=== PATIENT | male | born 1970 | race Caucasian/White ===

== ENCOUNTER 2021-09-06 17:38 | Inpatient (IN) | payer MEDICAID, SELFPAY ==
[2021-09-06 17:42] VITALS: BP 143/88; PULSE 80; RESP 18; TEMP 36.7; O2SAT 99; BMI 27.1
[2021-09-06 19:21] LABS: Hematocrit 47.3 % (42.0-52.0); Hemoglobin 16.7 g/dl (14.0-18.0); Mean Corpuscular HGB Conc 35.3 g/dl (31.0-36.0); Mean Corpuscular Hemoglobin 31.5 pg (27.0-33.0); Mean Corpuscular Volume 89.2 fL (80.0-98.0); Mean Platelet Volume 9.2 fL (9.4-12.4); Platelet Count 258 X10*3/uL (160-400); Red Cell Distribution Width 13.6 % (11.0-16.0); White Blood Count 8.4 X10*3/uL (4.8-10.8)
[2021-09-06 19:34] LABS: Ethanol < 10 mg/dL
[2021-09-06 19:38] LABS: Alanine Aminotransferase 29 U/L (0-40); Albumin Level 4.3 g/dL (3.5-5.0); Alkaline Phosphatase 110 U/L (39-117); Anion Gap 16 (12-20); Aspartate Amino Transferase 39 U/L (5-37); Bilirubin Total 1.8 mg/dL (0.0-1.0); Blood Urea Nitrogen 9 mg/dL (9-16); Calcium 9.2 mg/dL (8.4-10.2); Carbon Dioxide 23 mmol/L (22-29); Chloride 99 mmol/L (96-108); Creatinine Clr Calc Pharmacy 95.3; Estimated Glomerular Filt Rate > 60; Glucose Random 178 mg/dL (60-115); Magnesium 1.4 mg/dL (1.6-2.6); Potassium 4.2 mmol/L (3.3-5.1); Sodium 134 mmol/L (135-145)
[2021-09-06 20:53] VITALS: BP 141/90; PULSE 82; RESP 18; TEMP 36.6; O2SAT 95
--- NOTE | 2021-09-06 21:17 | ED.ALCOHOL ---
HPI - Alcohol General Chief Complaint: ETOH/Substance Use Stated Complaint: sweating weakness Time Seen by Provider: 09/06/21 21:14 Source: patient and family (Mother) Mode of arrival: ambulatory Limitations: no limitations History of Present Illness HPI narrative: 50-year-old male history of alcohol abuse, brought in by his mother concerning of withdrawal alcohol symptoms. Patient has been vomiting, tremors in 4 extremities, and jittery. Last drink was last night about 24 hours ago did not drink a whole day today because he promised his mother not to drink. Related Data Home Medications Medication Instructions Recorded Confirmed albuterol sulfate 90 mcg/actuation 2 puff PO Q4-6H PRN 09/06/21 09/06/21 aerosol inhaler (ProAir HFA) ascorbic acid (vitamin C) 500 mg 1 tab PO BID 09/06/21 09/06/21 tablet citalopram 20 mg tablet 1 tab PO DAILY 09/06/21 09/06/21 ferrous sulfate 325 mg (65 mg 1 tab PO BID 09/06/21 09/06/21 iron) tablet naltrexone 50 mg tablet 1 tab PO DAILY 09/06/21 09/06/21 trazodone 100 mg tablet 2 tab PO BEDTIME 09/06/21 09/06/21 Allergies Allergy/AdvReac Type Severity Reaction Status Date / Time aripiprazole [From ABILIFY] Allergy Unknown HTN Unverified 04/09/20 16:04 cefaclor [From CECLOR] Allergy Unknown HIVES, rash Unverified 04/09/20 16:04 Cephalosporins Allergy Unknown RASH Unverified 04/09/20 16:04 Review of Systems Review of Systems: All other systems are reviewed and are negative Constitutional: Reports as per HPI and Reports no additional constitutional complaints Eyes: Reports as per HPI and Reports no additional eye complaints Reports system reviewed and no additional complaints, except as documented Cardiovascular: Reports as per HPI and Reports no additional cardiovascular complaints Respiratory: Reports as per HPI and Reports no additional respiratory complaints Gastrointestinal: Reports as per HPI and Reports no additional gastrointestinal complaints Genitourinary: Reports no additional female genitourinary complaints Musculoskeletal: Reports no additional musculoskeletal complaints Skin/Breast: Reports system reviewed and no additional complaints, except as docu Psychiatric: Reports no additional psychiatric complaints Endocrine: Reports no additional endocrine complaints Hematologic/Lymphatic: Reports no additional hematologic/lymphatic complaints Allergic/Immunologic: Reports no additional allergic/immunologic complaints Reports system reviewed and no additional complaints, except as documented and Reports Abnormal speech present [facility] Social History Social History Advance Directives: No Advance Directives Information Provided: Yes Physical Exam ED Vital Signs: Vital Signs - 24 hr 09/06/21 17:42 09/06/21 20:53 Temperature 98.0 F 97.9 F Pulse Rate 80 82 Respiratory Rate 18 18 Blood Pressure 143/88 H 141/90 H Pulse Oximetry 99 95 BMI result Body Mass Index 27.1 vital signs have been reviewed as appeared to be correct. Blood pressure normal. Heart rate normal. Respiration rate normal. Temperature normal. Oxygen saturation normal. Appearance: Alert. Oriented X3. appear very anxious with tremors. Head: Normal external exam. Normocephalic. Atraumatic. No Lovell signs noted. No raccoon eyes noted , with tongue fasciculation Eyes: PERRLA. EOMI. Conjunctiva and sclera normal. Eyelids normal. ENT: TM's Normal. Pharynx normal. Uvula midline. Moist mucous membranes. No trismus noted. No drooling noted. No muffled voice noted. Neck: Normal inspection. Neck supple. FROM. No adenopathy. Thyroid Normal. No meningeal signs. No neck mass noted. CVS: Normal heart rate and rhythm. Heart sound normal. No murmurs noted. Pulses normal throughout. Respiratory: No respiratory distress. Painless inspiration. Breath sounds normal. No wheezes/rales/rhonchi noted. Chest nontender. No accessory muscle usage noted or decreased air movement noted. Abdomen: Soft and nontender. Bowel sounds normal in all 4 quadrants. No distention noted. No organomegaly noted. No visible injury noted. Back: No CVA tenderness. Full range of motion noted. Skin: Skin warm and dry. Normal skin color. Normal skin turgor. No rashes/lesions/lacerations noted. Extremities: No lower extremity edema. Extremities exhibit normal range of motion. Extremities nontender. Neuro: Oriented X 3. Cranial nerve exam: II-XII are grossly intact No motor deficit. No sensory deficit. Reflexes normal. Course Course Course Narrative: assessment and plan. 50 years old male with history of alcoholism now with uncontrolled withdrawal symptoms, patient revealing severe anxiety and tremors, will start patient on phenobarb. 2. Patient with high hypomagnesemia will give IV magnesium replacement. MDM - Alcohol Lab Data Attestation: I reviewed the patient's lab results. Result diagrams: 09/06/21 19:07 09/06/21 19:07 Labs: Lab Results 09/06/21 09/06/21 09/06/21 Range/Units 19:07 19:07 19:07 WBC 8.4 (4.8-10.8) X10*3/uL RBC 5.30 (4.60-5.80) X10*6/uL Hgb 16.7 (14.0-18.0) g/dl Hct 47.3 (42.0-52.0) % MCV 89.2 (80.0-98.0) fL MCH 31.5 (27.0-33.0) pg MCHC 35.3 (31.0-36.0) g/dl RDW 13.6 (11.0-16.0) % Plt Count 258 (160-400) X10*3/uL MPV 9.2 L (9.4-12.4) fL Absolute Nucleated RBC 0.000 (0.0-0.012) X10*3/uL Nucleated RBC % (auto) 0.0 (0.0-0.2) /100WBC Sodium 134 L (135-145) mmol/L Potassium 4.2 (3.3-5.1) mmol/L Chloride 99 (96-108) mmol/L Carbon Dioxide 23 (22-29) mmol/L Anion Gap 16 (12-20) BUN 9 (9-16) mg/dL Creatinine 1.04 (0.5-1.4) mg/dL Estim Creat Clear Calc 95.3 Estimated GFR > 60 Random Glucose 178 H (60-115) mg/dL Calcium 9.2 (8.4-10.2) mg/dL Magnesium 1.4 L* (1.6-2.6) mg/dL Total Bilirubin 1.8 H (0.0-1.0) mg/dL AST 39 H (5-37) U/L ALT 29 (0-40) U/L Alkaline Phosphatase 110 (39-117) U/L Total Protein 7.0 (6.5-8.0) g/dL Albumin 4.3 (3.5-5.0) g/dL Ethyl Alcohol < 10 mg/dL Discharge Plan Discharge Clinical Impression: Alcohol withdrawal syndrome, Hypomagnesemia Patient Disposition: Admitted As Inpatient
--- NOTE | 2021-09-06 21:49 | PM.IMHP ---
History of Present Illness Date of Service: 09/06/21 Chief Complaint: Alcohol withdrawal 50-year-old male with a past medical history anxiety, depression, alcohol abuse presented to the hospital with a chief complaint of alcohol withdrawal. Patient reports that he has been drinking alcohol daily. Drinks about few cans of beer and shots. Last drink was 24 hours ago. Reports he has been having tremulousness, dry heaving, shaking in the legs. Denies any vomiting or diarrhea. Denies any chest pain or palpitations. Denies any fever chills cough. Denies any urinary symptoms. Review of all other systems is negative except mentioned above ER course: Per ER team patient noted to be tremulous and shaky, mildly tachycardic, noted to be in alcohol withdrawal. Lab showed mild hypomagnesemia-repleted; patient is on phenobarb protocol. Admitted to the hospital for further management. [facility] Pertinent family history: Reviewed Social History Advance Directives: No Advance Directives Information Provided: Yes Meds Allergies Allergy/AdvReac Type Severity Reaction Status Date / Time aripiprazole [From ABILIFY] Allergy Unknown HTN Unverified 04/09/20 16:04 cefaclor [From CECLOR] Allergy Unknown HIVES, rash Unverified 04/09/20 16:04 Cephalosporins Allergy Unknown RASH Unverified 04/09/20 16:04 Active Medications: Current Medications Acetaminophen (Acetaminophen 325 Mg Tablet) 650 mg PO Q6H PRN PRN Reason: Pain, Mild (Pain Scale 1-3) Enoxaparin Sodium (Enoxaparin Sodium 40 Mg/0.4 Ml Syringe) 40 mg SUBCUT Q24H [facility] Famotidine (Famotidine 20 Mg Tablet) 20 mg PO BID [facility]U Folic Acid (Folic Acid 1 Mg Tablet) 1 mg PO DAILY [facility] Stop: 09/10/21 08:59 Hydroxyzine HCl (Hydroxyzine Hcl 25 Mg Tablet) 25 mg PO Q6H PRN PRN Reason: Anxiety Magnesium Sulfate (Magnesium Sulfate/H2o) 2 gm in 50 mls @ 25 mls/hr IV ONCE ONE Stop: 09/06/21 23:13 Sodium Chloride (Ns) 1,000 mls @ 999 mls/hr IV .Q1H1M ONE Stop: 09/06/21 22:22 Dextrose/Sodium Chloride (D51/2ns) 1,000 mls @ 100 mls/hr IVCONT .Q10H [facility] Medication (No Benzodiazepines) 1 each MISCELLANE DAILY [facility] Melatonin (Melatonin 3 Mg Tablet) 6 mg PO BEDTIME PRN PRN Reason: Insomnia Multivitamins/Vitamin C (Multivitamin Tablet) 1 tab PO DAILY [facility] Stop: 09/10/21 08:59 Phenobarbital (Phenobarbital 30 Mg Tablet) 60 mg PO BID SHU; Protocol Stop: 09/08/21 21:01 Phenobarbital (Phenobarbital 30 Mg Tablet) 30 mg PO DAILY SHU; Protocol Stop: 09/12/21 09:01 Phenobarbital (Phenobarbital 30 Mg Tablet) 30 mg PO BID SHU; Protocol Stop: 09/10/21 21:01 Phenobarbital Sodium (Phenobarbital Sodium 130 Mg/Ml Vial) 232.7 mg IM Q3H [facility]U; Protocol Stop: 09/07/21 04:01 Senna (Sennosides 8.6 Mg Tablet) 17.2 mg PO BEDTIME PRN PRN Reason: Constipation Sodium Chloride (0.9 % Sodium Chloride Flush 3 Ml Syringe) 3 ml IVFLUSH QSHIFT [facility] Thiamine HCl (Thiamine Hcl 100 Mg Tablet) 100 mg PO DAILY [facility] Stop: 09/10/21 08:59 Home Medications Medication Instructions Recorded Confirmed Last Taken Type albuterol sulfate 90 mcg/actuation 2 puff PO Q4-6H PRN 09/06/21 09/06/21 Unknown History aerosol inhaler (ProAir HFA) ascorbic acid (vitamin C) 500 mg 1 tab PO BID 09/06/21 09/06/21 Unknown History tablet citalopram 20 mg tablet 1 tab PO DAILY 09/06/21 09/06/21 Unknown History ferrous sulfate 325 mg (65 mg 1 tab PO BID 09/06/21 09/06/21 Unknown History iron) tablet naltrexone 50 mg tablet 1 tab PO DAILY 09/06/21 09/06/21 Unknown History trazodone 100 mg tablet 2 tab PO BEDTIME 09/06/21 09/06/21 Unknown History Physical Exam Vital Signs and Narrative: Vital Signs: Last Vital Signs Temp 97.9 F 09/06/21 20:53 Pulse 82 09/06/21 20:53 Resp 18 09/06/21 20:53 BP 141/90 H 09/06/21 20:53 Pulse Ox 95 09/06/21 20:53 BMI result Body Mass Index 27.1 Gen: Appears be in no acute distress HEENT: NCAT, dry mucosa. Pulmonary: Vesicular breath sounds, fair air entry CVS: Normal S1-S2 Abdomen: BS+, Soft, Nontender Extremities: Warm well perfused Neuro: Alert and awake. Results Labs CBC and Chem 7: 09/06/21 19:07 09/06/21 19:07 Labs: Laboratory Results - last 24 hr 09/06/21 09/06/21 09/06/21 19:07 19:07 19:07 MCV 89.2 MCH 31.5 MCHC 35.3 RDW 13.6 Plt Count 258 MPV 9.2 L Absolute Nucleated RBC 0.000 Nucleated RBC % (auto) 0.0 Anion Gap 16 Estim Creat Clear Calc 95.3 Estimated GFR > 60 Random Glucose 178 H Calcium 9.2 Magnesium 1.4 L* Total Bilirubin 1.8 H AST 39 H ALT 29 Alkaline Phosphatase 110 Total Protein 7.0 Albumin 4.3 Ethyl Alcohol < 10 Assessment and Plan Plan 50-year-old male with a past medical history anxiety, depression, alcohol abuse presented to the hospital with a chief complaint of alcohol withdrawal. Alcohol withdrawal: Patient on phenobarb protocol. Continue thiamine folate and multivitamins Seizure and aspiration precautions Hypomagnesemia: Repleted History of depression: Continue home citalopram. DVT prophylaxis: Lovenox Code status: Full code Quality Stroke Does the patient have a stroke diagnosis?: No VTE Prior VTE?: No VTE Risk Level:: Medical - moderate - high VTE Device Contraindication: Treatment Not Indicated VTE Drug Contraindication: N/A - Med Ordered
[2021-09-06] MEDS: Magnesium Sulfate/H2O 2 GM/50 ML PIGGYBACK IV (21:53)
[2021-09-06] MEDS: 0.9 % Sodium Chloride 1,000 ML 999 ML IV (21:54)
[2021-09-06] MEDS: PHENobarbitaL sodium 130 MG/ML VIAL 310.7 MG IM (21:54)
--- NOTE | 2021-09-06 22:32 | PHA.MEDREC ---
Pharmacy Consult ? Medication Reconciliation Pharmacy has completed the medication reconciliation. SPOKE WITH PT
[2021-09-07] VITALS (10 sets, daily range): BP systolic 124–164; BP diastolic 61–104; PULSE 60–80; RESP 12–20; TEMP 35.8–37.2; O2SAT 93–97
[2021-09-07] MEDS: Dextrose 5 % and 0.45 % NaCl 1,000 ML 100 ML IVCONT ×3 (00:38→23:50)
[2021-09-07] MEDS: PHENobarbitaL sodium 130 MG/ML VIAL 232.7 MG IM ×2 (02:23→04:39)
[2021-09-07 04:45] LABS: COVID-19 Test Negative (Negative)
--- NOTE | 2021-09-07 06:53 | PC.NURSE ---
Patient slept through the night. CIWA score is now down to 0. Patient is currently on phenobarbital protocol. Currently has no tremors.
--- NOTE | 2021-09-07 06:55 | PC.NURSE ---
Patient's mothers numbers are cell [phone], home phone [phone]. The mothers name in Mickie
--- NOTE | 2021-09-07 07:36 | PC.NURSE ---
rn to rn report given to pedro robles aware of plan of care for admission and transfer to [facility].
[2021-09-07 07:55] LABS: MANUAL DIFF FLAG NO
[2021-09-07 07:57] LABS: Basophils Percent Auto 0.3 % (0-2); Eosinophils Percent Auto 0.2 % (0-4); Hematocrit 46.5 % (42.0-52.0); Hemoglobin 16.3 g/dl (14.0-18.0); Imm Gran Abs Auto 0.04 X10*3/uL (0.00-0.03); Imm Gran Pct Auto 0.4 % (0.0-0.4); Lymphocytes Absolute Auto 1.8 X10*3/uL (1.2-4.9); Lymphocytes Percent Auto 19.6 % (20-40); Mean Corpuscular HGB Conc 35.1 g/dl (31.0-36.0); Mean Corpuscular Hemoglobin 31.9 pg (27.0-33.0); Mean Platelet Volume 9.4 fL (9.4-12.4); Monocytes Absolute Auto 0.7 X10*3/uL (0.1-1.2); Monocytes Percent Auto 8.2 % (2-11); Neutrophils Absolute Auto 6.4 x10*3/uL (2.0-8.3); Neutrophils Percent Auto 71.3 % (45-73); Platelet Count 218 X10*3/uL (160-400); Red Blood Count 5.11 X10*6/uL (4.60-5.80); Red Cell Distribution Width 13.2 % (11.0-16.0)
[2021-09-07 08:11] LABS: Magnesium 2.1 mg/dL (1.6-2.6)
[2021-09-07 08:13] LABS: Anion Gap 15 (12-20); Blood Urea Nitrogen 7 mg/dL (9-16); Calcium 8.6 mg/dL (8.4-10.2); Carbon Dioxide 24 mmol/L (22-29); Chloride 101 mmol/L (96-108); Creatinine Clr Calc Pharmacy 101.1; Estimated Glomerular Filt Rate > 60; Glucose Random 134 mg/dL (60-115); Potassium 4.3 mmol/L (3.3-5.1); Sodium 136 mmol/L (135-145)
--- NOTE | 2021-09-07 08:36 | MHC.CM.PN ---
CM met with Patient at bedside. Patient lives in a house with his Parents and he is functionally independent and working at [employer]. Home no services vs Care Tram Interventions r/t ETOH is the goal and CM has initiated and will follow for dc planning. Patient lives in a house with his Parents and he has received Moderna Covid vax X3. PCP is Dr. Elma Fishman.
[2021-09-07] MEDS: Ascorbic Acid 500 MG TABLET PO ×2 (09:39→21:55)
[2021-09-07] MEDS: Thiamine HCL 100 MG TABLET PO (09:39)
[2021-09-07] MEDS: Escitalopram Oxalate 10 MG TABLET PO (09:39)
[2021-09-07] MEDS: Famotidine 20 MG TABLET PO ×2 (09:39→21:55)
[2021-09-07] MEDS: Multivitamin TABLET 1 TAB PO (09:39)
[2021-09-07] MEDS: Folic Acid 1 MG TABLET PO (09:39)
[2021-09-07] MEDS: PHENobarbitaL sodium 130 MG/ML VIAL IM (09:39)
[2021-09-07] MEDS: PHENobarbitaL 30 MG TABLET 60 MG PO ×2 (09:40→21:56)
--- NOTE | 2021-09-07 11:16 | P.PNIM_ITS ---
Subjective Subjective Date of Service: 09/07/21 Interval History: the patient was seen and evaluated this morning Laying in bed, feels anxious and having tremors Denies any fever, chills or chest pain No reported other overnight events. Systemic review: No fever, chills but reports increased anxiety and tremors No chest pain, palpitation No shortness of breath or coughing No abdominal pain, nausea or vomiting No urinary symptoms No any rash or wounds Physical Exam Vital Signs: Vital Signs: Last Vital Signs Temp 98.6 F 09/07/21 11:10 Pulse 76 09/07/21 11:10 Resp 16 09/07/21 11:10 BP 124/76 09/07/21 11:10 Pulse Ox 95 09/07/21 11:10 BMI result Body Mass Index 27.1 Const: Other: Constitutional : Alert, oriented, mildly anxious Neck : Normal inspection, Supple Cardiovascular : RRR, S1 S2, no lower extremity edema Respiratory : Good bilateral air entry, no crackles, wheezes or rhonchi Gastrointestinal: soft, lax, Normal bowel sounds, Non tender Skin : Warm, Dry Neurological : Alert & oriented x3, No focal deficit, lower extremities tremors Objective Data Active Medications Acetaminophen (Acetaminophen 325 Mg Tablet) 650 mg PO Q6H PRN PRN Reason: Pain, Mild (Pain Scale 1-3) Albuterol Sulfate (Albuterol Sulfate 90 Mcg 8 Gm Inhaler) 2 puff INHALE Q4H PRN PRN Reason: Shortness Of Breath Ascorbic Acid (Ascorbic Acid 500 Mg Tablet) 500 mg PO BID [facility] Last Admin: 09/07/21 09:39 Dose: 500 mg Documented by: PEMA Enoxaparin Sodium (Enoxaparin Sodium 40 Mg/0.4 Ml Syringe) 40 mg SUBCUT Q24H [facility] Last Admin: 09/07/21 09:48 Dose: Not Given Documented by: PEMA Non-Admin Reason: Patient Refused Escitalopram Oxalate (Escitalopram Oxalate 10 Mg Tablet) 10 mg PO DAILY [facility] Last Admin: 09/07/21 09:39 Dose: 10 mg Documented by: PEMA Famotidine (Famotidine 20 Mg Tablet) 20 mg PO BID [facility] Last Admin: 09/07/21 09:39 Dose: 20 mg Documented by: PEMA Folic Acid (Folic Acid 1 Mg Tablet) 1 mg PO DAILY [facility] Stop: 09/10/21 08:59 Last Admin: 09/07/21 09:39 Dose: 1 mg Documented by: PEMA Hydroxyzine HCl (Hydroxyzine Hcl 25 Mg Tablet) 25 mg PO Q6H PRN PRN Reason: Anxiety Dextrose/Sodium Chloride (D51/2ns) 1,000 mls @ 100 mls/hr IVCONT .Q10H [facility] Last Admin: 09/07/21 09:30 Dose: 100 mls/hr Documented by: PEMA Medication (No Benzodiazepines) 1 each MISCELLANE DAILY [facility] Melatonin (Melatonin 3 Mg Tablet) 6 mg PO BEDTIME PRN PRN Reason: Insomnia Multivitamins/Vitamin C (Multivitamin Tablet) 1 tab PO DAILY [facility] Stop: 09/10/21 08:59 Last Admin: 09/07/21 09:39 Dose: 1 tab Documented by: PEMA Phenobarbital (Phenobarbital 30 Mg Tablet) 60 mg PO BID [facility]; Protocol Stop: 09/08/21 21:01 Last Admin: 09/07/21 09:40 Dose: 60 mg Documented by: PEMA Phenobarbital (Phenobarbital 30 Mg Tablet) 30 mg PO DAILY [facility]; Protocol Stop: 09/12/21 09:01 Phenobarbital (Phenobarbital 30 Mg Tablet) 30 mg PO BID [facility]; Protocol Stop: 09/10/21 21:01 Senna (Sennosides 8.6 Mg Tablet) 17.2 mg PO BEDTIME PRN PRN Reason: Constipation Sodium Chloride (0.9 % Sodium Chloride Flush 3 Ml Syringe) 3 ml IVFLUSH QSHIFT [facility] Last Admin: 09/07/21 09:30 Dose: Not Given Documented by: PEMA Non-Admin Reason: IV Running Thiamine HCl (Thiamine Hcl 100 Mg Tablet) 100 mg PO DAILY [facility] Stop: 09/10/21 08:59 Last Admin: 09/07/21 09:39 Dose: 100 mg Documented by: PEMA Trazodone HCl (Trazodone Hcl 100 Mg Tablet) 200 mg PO BEDTIME [facility] Labs CBC & Chem 7: 09/07/21 07:24 09/07/21 07:24 Labs: Laboratory Results - last 24 hr 09/06/21 09/06/21 09/06/21 19:07 19:07 19:07 MCV 89.2 MCH 31.5 MCHC 35.3 RDW 13.6 Plt Count 258 MPV 9.2 L Immature Gran % (Auto) Neut % (Auto) Lymph % (Auto) Mora % (Auto) Eos % (Auto) Baso % (Auto) Lymph # (Auto) Mora # (Auto) Eos # (Auto) Baso # (Auto) Abs Immat Gran (auto) Absolute Neuts (auto) Absolute Nucleated RBC 0.000 Nucleated RBC % (auto) 0.0 Anion Gap 16 Estim Creat Clear Calc 95.3 Estimated GFR > 60 Random Glucose 178 H Calcium 9.2 Magnesium 1.4 L* Total Bilirubin 1.8 H AST 39 H ALT 29 Alkaline Phosphatase 110 Total Protein 7.0 Albumin 4.3 Ethyl Alcohol < 10 COVID-19 (JAZZY) COVID-[employer] 09/07/21 09/07/21 09/07/21 04:25 07:24 07:24 MCV 91.0 MCH 31.9 MCHC 35.1 RDW 13.2 Plt Count 218 MPV 9.4 Immature Gran % (Auto) 0.4 Neut % (Auto) 71.3 Lymph % (Auto) 19.6 L Mora % (Auto) 8.2 Eos % (Auto) 0.2 Baso % (Auto) 0.3 Lymph # (Auto) 1.8 Mora # (Auto) 0.7 Eos # (Auto) 0.0 Baso # (Auto) 0.0 Abs Immat Gran (auto) 0.04 H Absolute Neuts (auto) 6.4 Absolute Nucleated RBC 0.000 Nucleated RBC % (auto) 0.0 Anion Gap 15 Estim Creat Clear Calc 101.1 Estimated GFR > 60 Random Glucose 134 H Calcium 8.6 D Magnesium Total Bilirubin AST ALT Alkaline Phosphatase Total Protein Albumin Ethyl Alcohol COVID-19 (JAZZY) Negative COVID-19 [employer] Com See Note 09/07/21 07:24 MCV MCH MCHC RDW Plt Count MPV Immature Gran % (Auto) Neut % (Auto) Lymph % (Auto) Mora % (Auto) Eos % (Auto) Baso % (Auto) Lymph # (Auto) Mora # (Auto) Eos # (Auto) Baso # (Auto) Abs Immat Gran (auto) Absolute Neuts (auto) Absolute Nucleated RBC Nucleated RBC % (auto) Anion Gap Estim Creat Clear Calc Estimated GFR Random Glucose Calcium Magnesium 2.1 Total Bilirubin AST ALT Alkaline Phosphatase Total Protein Albumin Ethyl Alcohol COVID-19 (JAZZY) COVID-19 Clin Com Assessment and Plan (1) Alcohol withdrawal syndrome: Status: Acute (2) Hypomagnesemia: Status: Acute Plan 50-year-old male with a past medical history anxiety, depression, alcohol abuse presented to the hospital with a chief complaint of alcohol withdrawal.? Alcohol withdrawal Patient on phenobarb protocol.? Continue thiamine folate and multivitamins Seizure and aspiration precautions Hypomagnesemia Repleted, 2.1 History of depression Continue home citalopram.? DVT prophylaxis [email or web address] Quality Stroke Does the patient have a stroke diagnosis?: No VTE Prior VTE?: No VTE Risk Level:: Medical - moderate - high VTE Device Contraindication: Treatment Not Indicated VTE Drug Contraindication: N/A - Med Ordered
[2021-09-07] MEDS: traZODone HCL 100 MG TABLET 200 MG PO (21:55)
[2021-09-07 22:39] LABS: Glucose, Whole Blood 105 mg/dL (60-115)
--- NOTE | 2021-09-08 00:47 | PC.NURSE ---
At 2049 this RN was notified by VIBHA Raman that patient had a witnessed fall while walking to the bathroom. Pt had rang call calle, when the FLAME BRAZING MACHINE OPERATOR walked in the room the pt had already disconnected his own IV, which was then dripping on the floor. Pt stood up quickly stating he needed to have a BM urgently, stepping in the IV fluid and began walking quickly towards the bathroom. Just outside the bathroom pt slipped from wet socks and landed on his buttocks. Pt denies any pain, and no visible signs of injury at this time. Vital signs and POC taken, WNL. Pt educated on not touching IV. Pt made a high fall risk and educated on proper precautions. Nursing clerk supervisor Shante, and MD Herndon made aware. at bedside, no new orders.
[2021-09-08 03:34] VITALS: BP 126/83; PULSE 62; RESP 18; TEMP 35.9; O2SAT 97
[2021-09-08 06:32] LABS: Hematocrit 41.7 % (42.0-52.0); Hemoglobin 14.6 g/dl (14.0-18.0); Mean Corpuscular Hemoglobin 31.9 pg (27.0-33.0); Mean Platelet Volume 9.7 fL (9.4-12.4); Platelet Count 142 X10*3/uL (160-400); Red Blood Count 4.58 X10*6/uL (4.60-5.80); Red Cell Distribution Width 13.1 % (11.0-16.0); White Blood Count 4.3 X10*3/uL (4.8-10.8)
[2021-09-08 07:06] LABS: Blood Urea Nitrogen 6 mg/dL (9-16); Calcium 8.3 mg/dL (8.4-10.2); Creatinine Clr Calc Pharmacy 102.2; Estimated Glomerular Filt Rate > 60; Glucose Random 117 mg/dL (60-115)
[2021-09-08 07:22] LABS: Anion Gap 9 (12-20); Carbon Dioxide 28 mmol/L (22-29); Chloride 103 mmol/L (96-108); Potassium 3.3 mmol/L (3.3-5.1); Sodium 137 mmol/L (135-145)
[2021-09-08 07:28] VITALS: BP 102/62; PULSE 56; RESP 18; TEMP 35.8; O2SAT 96
[2021-09-08] MEDS: Folic Acid 1 MG TABLET PO (08:08)
[2021-09-08] MEDS: Famotidine 20 MG TABLET PO ×2 (08:08→21:10)
[2021-09-08] MEDS: PHENobarbitaL 30 MG TABLET 60 MG PO ×2 (08:08→21:10)
[2021-09-08] MEDS: Thiamine HCL 100 MG TABLET PO (08:08)
[2021-09-08] MEDS: Escitalopram Oxalate 10 MG TABLET PO (08:09)
[2021-09-08] MEDS: Ascorbic Acid 500 MG TABLET PO ×2 (08:09→21:10)
[2021-09-08] MEDS: Multivitamin TABLET 1 TAB PO (08:09)
[2021-09-08] MEDS: Enoxaparin Sodium 40 MG/0.4 ML SYRINGE SUBCUT (08:12)
[2021-09-08] MEDS: Dextrose 5 % and 0.45 % NaCl 1,000 ML 100 ML IVCONT ×2 (08:38→17:31)
[2021-09-08 11:12] VITALS: BP 127/78; PULSE 78; RESP 16; TEMP 35.9; O2SAT 97
--- NOTE | 2021-09-08 11:33 | P.PNIM_ITS ---
Subjective Subjective Date of Service: 09/08/21 Interval History: cc: jittery interval history: tired Cardiovascular Cardiovascular: Reports no additional cardiovascular complaints Respiratory Respiratory: Reports no additional respiratory complaints Physical Exam Vital Signs: Vital Signs: Last Vital Signs Temp 96.7 F L 09/08/21 11:12 Pulse 78 09/08/21 11:12 Resp 16 09/08/21 11:12 BP 127/78 09/08/21 11:12 Pulse Ox 97 09/08/21 11:12 BMI result Body Mass Index 27.1 General: lethargic, resting tremor Resp: CTA bilateral, no accessory muscles used CVS: S1,S2,RRR GI: soft, non tender, non distended Neuro: motor grossly intact Psych: appropriate affect, appropriate insight Objective Data Active Medications Acetaminophen (Acetaminophen 325 Mg Tablet) 650 mg PO Q6H PRN PRN Reason: Pain, Mild (Pain Scale 1-3) Albuterol Sulfate (Albuterol Sulfate 90 Mcg 8 Gm Inhaler) 2 puff INHALE Q4H PRN PRN Reason: Shortness Of Breath Ascorbic Acid (Ascorbic Acid 500 Mg Tablet) 500 mg PO BID [facility] Last Admin: 09/08/21 08:09 Dose: 500 mg Documented by: DAVID Enoxaparin Sodium (Enoxaparin Sodium 40 Mg/0.4 Ml Syringe) 40 mg SUBCUT Q24H [facility] Last Admin: 09/08/21 08:12 Dose: 40 mg Documented by: DAVID Escitalopram Oxalate (Escitalopram Oxalate 10 Mg Tablet) 10 mg PO DAILY [facility] Last Admin: 09/08/21 08:09 Dose: 10 mg Documented by: DAVID Famotidine (Famotidine 20 Mg Tablet) 20 mg PO BID [facility] Last Admin: 09/08/21 08:08 Dose: 20 mg Documented by: DAVID Folic Acid (Folic Acid 1 Mg Tablet) 1 mg PO DAILY [facility] Stop: 09/10/21 08:59 Last Admin: 09/08/21 08:08 Dose: 1 mg Documented by: DAVID Hydroxyzine HCl (Hydroxyzine Hcl 25 Mg Tablet) 25 mg PO Q6H PRN PRN Reason: Anxiety Dextrose/Sodium Chloride (D51/2ns) 1,000 mls @ 100 mls/hr IVCONT .Q10H [facility] Last Admin: 09/08/21 08:38 Dose: 100 mls/hr Documented by: DAVID Medication (No Benzodiazepines) 1 each MISCELLANE DAILY [facility] Melatonin (Melatonin 3 Mg Tablet) 6 mg PO BEDTIME PRN PRN Reason: Insomnia Multivitamins/Vitamin C (Multivitamin Tablet) 1 tab PO DAILY [facility] Stop: 09/10/21 08:59 Last Admin: 09/08/21 08:09 Dose: 1 tab Documented by: DAVID Phenobarbital (Phenobarbital 30 Mg Tablet) 60 mg PO BID [facility]; Protocol Stop: 09/08/21 21:01 Last Admin: 09/08/21 08:08 Dose: 60 mg Documented by: DAVID Phenobarbital (Phenobarbital 30 Mg Tablet) 30 mg PO DAILY [facility]; Protocol Stop: 09/12/21 09:01 Phenobarbital (Phenobarbital 30 Mg Tablet) 30 mg PO BID [facility]; Protocol Stop: 09/10/21 21:01 Senna (Sennosides 8.6 Mg Tablet) 17.2 mg PO BEDTIME PRN PRN Reason: Constipation Sodium Chloride (0.9 % Sodium Chloride Flush 3 Ml Syringe) 3 ml IVFLUSH QSHIFT [facility] Last Admin: 09/08/21 08:10 Dose: Not Given Documented by: DAVID Non-Admin Reason: IV Running Thiamine HCl (Thiamine Hcl 100 Mg Tablet) 100 mg PO DAILY [facility] Stop: 09/10/21 08:59 Last Admin: 09/08/21 08:08 Dose: 100 mg Documented by: DAVID Trazodone HCl (Trazodone Hcl 100 Mg Tablet) 200 mg PO BEDTIME [facility] Last Admin: 09/07/21 21:55 Dose: 200 mg Documented by: NICHOLAS Labs CBC & Chem 7: 09/08/21 05:59 09/08/21 05:59 Labs: Laboratory Results - last 24 hr 09/07/21 09/08/21 09/08/21 20:55 05:59 05:59 MCV 91.0 MCH 31.9 MCHC 35.0 RDW 13.1 Plt Count 142 L D MPV 9.7 Absolute Nucleated RBC 0.000 Nucleated RBC % (auto) 0.0 Anion Gap 9 L Estim Creat Clear Calc 102.2 Estimated GFR > 60 POC Glucose 105 Random Glucose 117 H Calcium 8.3 L Assessment and Plan (1) Alcohol withdrawal syndrome: Status: Acute (2) Hypomagnesemia: Status: Acute Plan 50-year-old male with a past medical history anxiety, depression, alcohol abuse presented to the hospital with a chief complaint of alcohol withdrawal.? Alcohol dependence with withdrawal continue phenobarb protocol.? Continue thiamine folate and multivitamins Seizure and aspiration precautions Hypomagnesemia Repleted, 2.1 History of depression Continue home citalopram.? DVT prophylaxis Lovenox Quality Stroke Does the patient have a stroke diagnosis?: No VTE Prior VTE?: No VTE Risk Level:: Medical - moderate - high VTE Device Contraindication: Treatment Not Indicated VTE Drug Contraindication: N/A - Med Ordered
--- NOTE | 2021-09-08 14:53 | MHC.CM.PN ---
Spoke with Pts Mother. Discharge planning was discussed. A Care team consult will be done to assist with dispo. CM will follow.
[2021-09-08 15:36] VITALS: BP 131/84; PULSE 89; RESP 18; TEMP 36.7; O2SAT 98
[2021-09-08] MEDS: Loperamide HCl 2 MG CAPSULE PO (17:31)
[2021-09-08] MEDS: Simethicone 80 MG TAB.CHEW PO (17:31)
[2021-09-08 19:11] VITALS: BP 122/78; PULSE 58; RESP 18; TEMP 37.1; O2SAT 98
[2021-09-08 23:40] VITALS: BP 140/79; PULSE 67; RESP 20; TEMP 37.2; O2SAT 98
[2021-09-09] MEDS: traZODone HCL 100 MG TABLET 200 MG PO (00:23)
[2021-09-09 04:00] VITALS: BP 128/60; PULSE 58; RESP 18; TEMP 37.1; O2SAT 98
[2021-09-09 06:56] LABS: Hematocrit 40.8 % (42.0-52.0); Hemoglobin 14.2 g/dl (14.0-18.0); Mean Corpuscular HGB Conc 34.8 g/dl (31.0-36.0); Mean Corpuscular Hemoglobin 31.6 pg (27.0-33.0); Mean Corpuscular Volume 90.9 fL (80.0-98.0); Platelet Count 141 X10*3/uL (160-400); Red Blood Count 4.49 X10*6/uL (4.60-5.80); Red Cell Distribution Width 13.1 % (11.0-16.0); White Blood Count 5.1 X10*3/uL (4.8-10.8)
[2021-09-09 07:12] LABS: Anion Gap 10 (12-20); Blood Urea Nitrogen 7 mg/dL (9-16); Calcium 8.4 mg/dL (8.4-10.2); Carbon Dioxide 26 mmol/L (22-29); Chloride 105 mmol/L (96-108); Creatinine Clr Calc Pharmacy 110.1; Estimated Glomerular Filt Rate > 60; Glucose Fasting 96 mg/dL (60-99); Potassium 3.4 mmol/L (3.3-5.1); Sodium 138 mmol/L (135-145)
[2021-09-09 07:29] VITALS: BP 117/74; PULSE 57; RESP 20; TEMP 36.8; O2SAT 96
[2021-09-09] MEDS: Enoxaparin Sodium 40 MG/0.4 ML SYRINGE SUBCUT (07:45)
[2021-09-09] MEDS: Escitalopram Oxalate 10 MG TABLET PO (07:46)
[2021-09-09] MEDS: Folic Acid 1 MG TABLET PO (07:46)
[2021-09-09] MEDS: Famotidine 20 MG TABLET PO (07:47)
[2021-09-09] MEDS: PHENobarbitaL 30 MG TABLET PO (07:47)
[2021-09-09] MEDS: 0.9 % Sodium Chloride Flush 3 ML SYRINGE IVFLUSH (07:47)
[2021-09-09] MEDS: Multivitamin TABLET 1 TAB PO (07:48)
[2021-09-09] MEDS: Thiamine HCL 100 MG TABLET PO (07:48)
[2021-09-09] MEDS: Ascorbic Acid 500 MG TABLET PO (07:48)
--- NOTE | 2021-09-09 09:25 | PM.DS ---
DS: Providers Provider Date of Service: 09/09/21 Date of admission: 09/06/21 21:46 Primary care physician: Elma Fishman MD Consults: 09/08/21 13:58 Consult to Care Team Routine Comment: Reason for consultation: etoh DS: Diagnosis Discharge Diagnosis (1) Alcohol withdrawal syndrome: Status: Acute (2) Hypomagnesemia: Status: Acute DS: Summary Hospital Course Hospital Course: patient was admitted for alcohol dependence with withdrawal and hypomagnesemia. he was given phenobarbital and magnesium supplement. magnesium returned to normal. withdrawal symptoms resolved. patient is feeling better, will be discharged home and follow up in the community. Time Spent with Patient Time attestation: Total time spent providing and/or coordinating discharge services: Discharge coordination time: Greater than 30 minutes Quality: Stroke Does the patient have a stroke diagnosis?: No Physical Exam Vital Signs: Vital Signs: Last Vital Signs Temp 98.3 F 09/09/21 07:29 Pulse 57 09/09/21 07:29 Resp 20 09/09/21 07:29 BP 117/74 09/09/21 07:29 Pulse Ox 96 09/09/21 07:29 BMI result Body Mass Index 27.1 General: AO X 3, no acute distress Resp: CTA bilateral, no accessory muscles used CVS: S1,S2,RRR GI: soft, non tender, non distended Neuro: motor grossly intact, alert Psych: appropriate affect, appropriate insight DS: Data Data Completed and Pending Labs on day of discharge: Laboratory Results - last 24 hr 09/09/21 09/09/21 05:54 05:54 WBC 5.1 RBC 4.49 L Hgb 14.2 Hct 40.8 L MCV 90.9 MCH 31.6 MCHC 34.8 RDW 13.1 Plt Count 141 L MPV 10.0 Absolute Nucleated RBC 0.000 Nucleated RBC % (auto) 0.0 Sodium 138 Potassium 3.4 Chloride 105 Carbon Dioxide 26 Anion Gap 10 L BUN 7 L Creatinine 0.90 Estim Creat Clear Calc 110.1 Estimated GFR > 60 Fasting Glucose 96 Calcium 8.4 Discharge Plan Discharge Patient Disposition: Home, Self-Care Discharge Diagnosis: etoh withdrawal Referrals: Elma Fishman MD [Primary Care Provider] - 1 Week Discharge Medications: Continued naltrexone 50 mg tablet 1 tab PO DAILY 0RF citalopram 20 mg tablet 1 tab PO DAILY 0RF ascorbic acid (vitamin C) 500 mg tablet 1 tab PO BID 0RF trazodone 100 mg tablet 2 tab PO BEDTIME 0RF ferrous sulfate 325 mg (65 mg iron) tablet 1 tab PO BID 0RF albuterol sulfate [ProAir HFA] 90 mcg/actuation HFA aerosol inhaler 2 puff PO Q4-6H PRN (Reason: Shortness Of Breath) 0RF Discharge Orders: Discharge Order (Routine); Ordered 09/09/21 Ordered By: Nickolas Pardo Diet: advance to usual diet Activity on Discharge: As tolerated Stand Alone Forms: Patient Portal Discharge page Care Plan Goals: recovery Health Concerns: etoh dependence Plan of Treatment: avoid etoh Assessment: see above
[2021-09-09 11:20] VITALS: BP 120/68; PULSE 60; RESP 18; TEMP 36.7; O2SAT 95
--- NOTE | 2021-09-09 12:57 | MHC.RECOVSUP ---
? Reason for consult:Recovery Support o Current location:[facility] o Identified substance use concern:ETOH - Withdrawal - Support ? Intervention: o MAT started or to be started o Community resources provided o Harm reduction discussion ? Plan: o Referral to [facility] o Bed search in progress to o Patient to follow up with [facility] after discharge ? Additional information:Patient seeking a bed @ a [facility]. Patient being discharged today and was given community resources.
--- NOTE | 2021-09-09 13:54 | MHC.CM.PN ---
Male 50 DX ETOH W/D He is discharged today. He was provided contact info to [facility]. He called requesting admission to the program. He provided his information. He was seen by Satnam, head athletic trainer/strength coach today. He was provided Community resource information. Satnam also spoke with his contacts at [facility] [place]. The Patient is to follow up with [facility] re admission. The patients Father will provide transportation to home. He is aware of the discharge plan. RN notified of discharge plan and that patients father is providing transport home today.
== END 2021-09-09 18:13 | disposition home or self-care (01) | DRG 425 ==
LOC: HO.ED 21:25 → HO.EDOVER 21:53 → HO.IMC 09-07 05:55
PROVIDERS: Student in an Organized Health Care Education/Training Program; Admitting Provider Hospitalist; Emergency Provider Emergency Medicine; PCP Family Medicine; Visit Provider Internal Medicine
DX: E83.42 Hypomagnesemia (principal); F10.239 Alcohol dependence with withdrawal, unspecified; F41.9 Anxiety disorder, unspecified; F32.A Depression, unspecified; Z20.822 Contact with and (suspected) exposure to COVID-19; Z79.899 Other long term (current) drug therapy
CPT/HCPCS: 36415; 80048; 80053; 82077; 82947; 83735; 85025; 85027; 87635; 96365; 96366; 96372; 99285; J1650; J2560; J3475

== ENCOUNTER 2021-11-05 21:10 | Emergency (ER) | payer MEDICAID, SELFPAY ==
--- NOTE | ~2021-11-05 | XR_ITS ---
EXAMINATION: XR HAND, LEFT CLINICAL INFORMATION: Pain status post injury COMPARISON: None TECHNIQUE: PA, lateral, and oblique views of the left hand. XR/XR hand LT min 3V FINDINGS/IMPRESSION: Moderately displaced fracture phalangeal tuft, with associated soft tissue swelling. No additional fractures. No radiopaque foreign bodies.
[2021-11-05 21:53] VITALS: BP 139/86; PULSE 108; RESP 14; TEMP 524.4; TEMP 976; O2SAT 97; BMI 24.4
--- NOTE | 2021-11-06 00:39 | ED_ITS ---
HPI - Wound/Laceration General Chief Complaint: Wound/Laceration Stated Complaint: Finger lac Time Seen by Provider: 11/05/21 23:59 Source: patient Mode of arrival: ambulatory Limitations: no limitations History of Present Illness HPI narrative: This is a 51-year-old male presenting to the emergency department with complaints of laceration to left distal aspect of 4th digit. Patient tells me was skateboarding, he fell and scraped his finger on the ground he is unsure what his fingers caught with. He denies numbness and tingling. He is not sure of his tetanus status. He denies loss of consciousness. He denies any wrist pain. Patient is not on blood thinners Onset (ago): hour(s) (3) Location: other (left 4th digit ) Body four view annotation: 1. laceration Place: other (skate park ) Patient tetanus UTD: No Context: accidental Associated symptoms: none Related Data Home Medications Medication Instructions Recorded Confirmed albuterol sulfate 90 mcg/actuation 2 puff PO Q4-6H PRN 09/06/21 09/06/21 aerosol inhaler (ProAir HFA) ascorbic acid (vitamin C) 500 mg 1 tab PO BID 09/06/21 09/06/21 tablet citalopram 20 mg tablet 1 tab PO DAILY 09/06/21 09/06/21 ferrous sulfate 325 mg (65 mg 1 tab PO BID 09/06/21 09/06/21 iron) tablet naltrexone 50 mg tablet 1 tab PO DAILY 09/06/21 09/06/21 trazodone 100 mg tablet 2 tab PO BEDTIME 09/06/21 09/06/21 Previous Rx's Medication Instructions Recorded clindamycin HCl 300 mg capsule 600 mg PO Q8H 7 Days #42 cap 11/06/21 Allergies Allergy/AdvReac Type Severity Reaction Status Date / Time aripiprazole [From ABILIFY] Allergy Unknown HTN Verified 09/07/21 00:46 cefaclor [From CECLOR] Allergy Unknown HIVES, rash Verified 09/07/21 00:46 Cephalosporins Allergy Unknown RASH Verified 09/07/21 00:46 Review of Systems Review of Systems: Constitutional : No Fever, No Chills, Cardiovascular : No Chest Pain, No SOB Respiratory : No Dyspnea Gastrointestinal : No abdominal pain Musculoskeletal : No Joint Swelling Skin : No rash, positive skin laceration Neuro : No Weakness, No Numbness Psych : No SI/HI Yes all other systems are reviewed and are negative [facility] Past Medical History Attestation statement: The following information was validated with the patient. Source: old records reviewed and nursing notes reviewed Social History Social History Household Members: Family Housing: House Do you presently have visiting nurse or other home services: No Alcohol intake: never Patient Tobacco Use Status: Never used Tobacco Substance Use Type: Marijuana Advance Directives: No service: No Current occupational status: employed Physical Exam Vital Signs: Vital Signs: Last Vital Signs Temp 976 F H 11/05/21 21:53 Pulse 108 H 11/05/21 21:53 Resp 14 11/05/21 21:53 BP 139/86 11/05/21 21:53 Pulse Ox 97 11/05/21 21:53 BMI result Body Mass Index 24.4 Vital signs stable Appearance: Alert.? Oriented X3.? No acute distress.? Head: Normocephalic, atraumatic, no step-offs or deformities Eyes: Pupils equal, round and reactive to light.? ENT: Pharynx normal.? Neck: Normal inspection.? Neck supple.? CVS: Normal heart rate and rhythm.? Pulses normal.? Respiratory: No respiratory distress.? Breath sounds normal.? Abdomen: Soft and nontender.? Skin: Skin warm and dry.? Normal skin color.? Normal skin turgor.?+ laceration to the left 4th distal aspect of digit. Irregularly shaped/complex- nail bed involvment. Extremities: No lower extremity edema.? No calf ttp. 5/5 strength to bilateral upper and lower extremities. Sensory and motor intact to bilateral upper extremities/digits. Full range of motion to all fingers on left and right hand. Back: No midline tenderness, no C-spine tenderness, full range of motion, no CVA tenderness bilaterally Neuro: Oriented X 3.? No motor deficit.? No sensory deficit. CN 2-12 intact Course Reevaluation(s) Reevaluation #1: Complex laceration repaired w/ 7 5-0 sutures, images below. Tolerated procedure well. NV intact. A dry dressing was applied to the area and he was placed in a finger splint. Patient with full range of motion. Patient will be discharged on antibiotics. Educated him on warning signs and symptoms. Advised him to follow-up with hand surgery. Comfortable discharge home with PCP follow-up and follow-up with hand surgery. Comfortable with discharge home. Time: 01:42 Reevaluation #2: Since this is technically an open fracture I discussed with my attending Isadora Ambrocio atbx selection since he is allergic to cephalosporins recommends clindamycin PO. Time: 01:55 MDM - Wound/Laceration MDM Narrative Medical decision making narrative: 0025 51 yo m presents w/ laceration to left distal aspect of fourth digit. Not sure of tetanus status. PE + laceration-complex (images in chart) w/ nail bed involvement. Sensory and motor intact to bilateral upper extremities/fingers. Capillary refill less than 2 seconds. Full range of motion to all fingers. Plan at this time is to obtain an x-ray to rule out fractures/dislocations. Will order tetanus shot for patient. Plan is to suture finger Medical Records Attestation: I reviewed the patient's medical records. Lab Data Attestation: I reviewed the patient's lab results. Procedures Laceration Laceration 1: Site: hand Side (If applicable): left Size (cm): 5 Description: irregular Depth: simple, single layer Local Anesthetic: lidocaine 2% Amount of anesthesia used (mL): 5 Pre-repair: wound explored, irrigated extensively and deep structures intact Skin layer closed with: nylon Size (cm): 5-0 Number of sutures: 7 Technique: simple, interrupted Critical Care Time Critical Care Time Critical Care Time: No Discharge Plan Discharge Clinical Impression: Laceration Patient Disposition: Home, Self-Care Instructions: Laceration (ED) Additional Instructions: Take your medications as prescribed. If you were prescribed antibiotics today, it is important that you take your medication to their entirety, do not skip any doses, do not finish them early. Follow-up with your primary care provider this week. Follow up with hand surgery if sx do not improve in 1 week Return in 7-10 days for suture removal. Look out for signs of infection as instructed. Return to the emergency department with new or worsening symptoms. Such as fevers, chills, chest pain, shortness of breath, nausea, vomiting, dizziness, headache, vision changes, lethargy In case of emergency call 911 Prescriptions: New clindamycin HCl 300 mg capsule 600 mg PO Q8H 7 Days Qty: 42 0RF No Action naltrexone 50 mg tablet 1 tab PO DAILY 0RF citalopram 20 mg tablet 1 tab PO DAILY 0RF ascorbic acid (vitamin C) 500 mg tablet 1 tab PO BID 0RF trazodone 100 mg tablet 2 tab PO BEDTIME 0RF ferrous sulfate 325 mg (65 mg iron) tablet 1 tab PO BID 0RF albuterol sulfate [ProAir HFA] 90 mcg/actuation HFA aerosol inhaler 2 puff PO Q4-6H PRN (Reason: Shortness Of Breath) 0RF Referrals: Irena Tate MD [Physician] - 2 days Elma Fishman MD [Primary Care Provider] - 2 days Stand Alone Forms: Work/School Release
[2021-11-06] MEDS: Diphth,Pertus(ACell),Tet Adult 0.5 ML SYRINGE IM (01:04)
[2021-11-06] MEDS: Lidocaine HCl 2 % MPF 5 ML VIAL SUBCUT (01:05)
[2021-11-06] MEDS: Clindamycin HCL 300 MG CAPSULE 600 MG PO (02:23)
== END 2021-11-06 02:24 | disposition home or self-care (01) ==
PROVIDERS: Emergency Provider Emergency Medicine; PCP Family Medicine
DX: S61.215A Laceration without foreign body of left ring finger without damage to nail, initial encounter (principal); S60.512A Abrasion of left hand, initial encounter; W26.9XXA Contact with unspecified sharp object(s), initial encounter; Y93.9 Activity, unspecified; Y92.9 Unspecified place or not applicable; Y99.9 Unspecified external cause status; Z79.899 Other long term (current) drug therapy
CPT/HCPCS: 12002; 73130; 90471; 90715; 99284

== ENCOUNTER → 2021-11-10 14:24 | Outpatient (BNVA) | payer MEDICAID, SELFPAY | PROVIDERS: PCP Orthopaedic Surgery; Visit Provider Physician Assistant | DX: S61.215D Laceration without foreign body of left ring finger without damage to nail, subsequent encounter (principal) | CPT/HCPCS: 99202 ==

== ENCOUNTER → 2021-11-18 14:52 | Outpatient (BNVA) | payer MEDICAID, SELFPAY | PROVIDERS: Visit Provider Physician Assistant | DX: S61.215D Laceration without foreign body of left ring finger without damage to nail, subsequent encounter (principal) | CPT/HCPCS: 99212 ==

== ENCOUNTER 2021-12-15 18:30 | Emergency (ER) | payer MEDICAID, SELFPAY ==
[2021-12-15 18:49] VITALS: BP 129/80; BP 134/90; PULSE 58; PULSE 71; RESP 16; TEMP 36.7; O2SAT 97; O2SAT 98; BMI 23.0
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
[2021-12-15 19:41] LABS: Appearance Urine CLEAR; Color Urine YELLOW; Glucose Urine UA NEG (NEG); Leukocyte Esterase Urine NEG (NEG); Nitrite Urine NEG (NEG); PH 5.5 (5.0-8.0); Specific Gravity - Urine <= 1.005 (1.005-1.025); Urine Blood NEG (NEG); Urine Ketones NEG (NEG); Urine Protein NEG (NEG-TRACE)
[2021-12-15 19:49] LABS: Amphetamine Screen Urine Not Detected (Not Detect); Barbiturates, Urine Not Detected (Not Detect); Benzodiazepines Screen Urine Not Detected (Not Detect); Cannabinoid Screen Urine POSITIVE (Not Detect); Cocaine Screen Urine Not Detected (Not Detect); Fentanyl, urine Not Detected (Not Detect); Opiate Screen Urine POSITIVE (Not Detect); Phencyclidine Screen Urine Not Detected (Not Detect)
[2021-12-15 19:53] LABS: COVID-19 Test Negative (Negative)
[2021-12-15 20:22] LABS: MANUAL DIFF FLAG NO
[2021-12-15 20:24] LABS: Basophils Percent Auto 0.8 % (0-2); Eosinophils Percent Auto 0.4 % (0-4); Hematocrit 44.4 % (42.0-52.0); Hemoglobin 15.7 g/dl (14.0-18.0); Imm Gran Abs Auto 0.02 X10*3/uL (0.00-0.03); Imm Gran Pct Auto 0.4 % (0.0-0.4); Lymphocytes Absolute Auto 1.4 X10*3/uL (1.2-4.9); Lymphocytes Percent Auto 26.7 % (20-40); Mean Corpuscular HGB Conc 35.4 g/dl (31.0-36.0); Mean Corpuscular Hemoglobin 33.9 pg (27.0-33.0); Mean Corpuscular Volume 95.9 fL (80.0-98.0); Mean Platelet Volume 9.1 fL (9.4-12.4); Monocytes Absolute Auto 0.3 X10*3/uL (0.1-1.2); Monocytes Percent Auto 5.7 % (2-11); Neutrophils Absolute Auto 3.5 x10*3/uL (2.0-8.3); Platelet Count 179 X10*3/uL (160-400); Red Blood Count 4.63 X10*6/uL (4.60-5.80); Red Cell Distribution Width 13.5 % (11.0-16.0); White Blood Count 5.3 X10*3/uL (4.8-10.8)
[2021-12-15 20:36] LABS: Ethanol 286 mg/dL
[2021-12-15 20:38] LABS: Alanine Aminotransferase 29 U/L (0-40); Albumin Level 3.9 g/dL (3.5-5.0); Alkaline Phosphatase 79 U/L (39-117); Anion Gap 16 (12-20); Aspartate Amino Transferase 36 U/L (5-37); Bilirubin Total 0.8 mg/dL (0.0-1.0); Blood Urea Nitrogen 6 mg/dL (9-16); Calcium 8.7 mg/dL (8.4-10.2); Carbon Dioxide 21 mmol/L (22-29); Chloride 108 mmol/L (96-108); Creatinine Clr Calc Pharmacy 103.6; Estimated Glomerular Filt Rate > 60; Glucose Random 91 mg/dL (60-115); Magnesium 2.1 mg/dL (1.6-2.6); Potassium 3.8 mmol/L (3.3-5.1); Sodium 141 mmol/L (135-145); Total Protein 6.4 g/dL (6.5-8.0)
[2021-12-15] MEDS: Amoxicillin 500 MG CAPSULE PO (22:52)
[2021-12-16 00:33] VITALS: BP 115/86; PULSE 80; RESP 16; TEMP 36.4; O2SAT 96
--- NOTE | 2021-12-16 06:12 | PC.NURSE ---
Patient slept through the night, no distress observed/reported, patient is trans male to female prefers to call Reshma, behavior pleasant and non concerning, med rec completed/pending provider's approval, [facility] referral completed/confirmed/pending evaluation in the morning, will continue to monitor.
[2021-12-16 06:26] VITALS: BP 140/96; PULSE 77; RESP 16; TEMP 36.6; O2SAT 98
[2021-12-16] MEDS: Albuterol Sulfate 90 MCG 8 GM INHALER 2 PUFF INHALE (06:29)
--- NOTE | 2021-12-16 07:06 | PC.NURSE ---
patient appears to remain asleep at present respirations are even and unlabored patient appears in no distress
[2021-12-16 07:35] VITALS: BP 148/99; PULSE 74; RESP 18; TEMP 36.7; O2SAT 98
[2021-12-16] MEDS: Ascorbic Acid 500 MG TABLET PO (08:33)
[2021-12-16] MEDS: chlordiazePOXIDE HCl 25 MG CAPSULE PO (08:33)
[2021-12-16] MEDS: Escitalopram Oxalate 10 MG TABLET PO (08:33)
[2021-12-16] MEDS: Amoxicillin 500 MG CAPSULE PO (08:33)
--- NOTE | 2021-12-16 08:34 | MHC.CARE ---
Pt is requesting to be discharged. Pt does not endorse current SI/HI/AH/VH. Pt declines wanting to engage in recovery services. Pt provided with [facility] Crisis information and Recovery Team.
== END 2021-12-16 08:54 | disposition home or self-care (01) ==
PROVIDERS: Physician Assistant; Emergency Provider Student in an Organized Health Care Education/Training Program; PCP Family Medicine
DX: F10.129 Alcohol abuse with intoxication, unspecified (principal); Y90.8 Blood alcohol level of 240 mg/100 ml or more; F41.1 Generalized anxiety disorder; F43.0 Acute stress reaction; F12.90 Cannabis use, unspecified, uncomplicated; Z79.899 Other long term (current) drug therapy; Z20.822 Contact with and (suspected) exposure to COVID-19; Z71.41 Alcohol abuse counseling and surveillance of alcoholic
CPT/HCPCS: 36415; 80053; 80307; 81003; 82077; 83735; 85025; 87635; 99284

== ENCOUNTER 2021-12-29 09:42 | Outpatient (REF) | payer MEDICAID, SELFPAY ==
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
== END 2021-12-29 09:43 | disposition home or self-care (01) ==
LOC: HO.XRAY 09:42
PROVIDERS: PCP Family Medicine; Visit Provider Nurse Practitioner Family
DX: M79.672 Pain in left foot (principal)
CPT/HCPCS: 73610; 73630

== ENCOUNTER 2021-12-30 09:42 | Outpatient (REF) | payer MEDICAID, SELFPAY ==
--- NOTE | ~2021-12-30 | US_ITS ---
EXAMINATION: US ABDOMEN COMPLETE CLINICAL INFORMATION: Liver disease. COMPARISON: Ultrasound abdomen 01/31/2020 and 06/18/2019. TECHNIQUE: Real-time imaging of the abdominal viscera. FINDINGS: PANCREAS: Normal. ABDOMINAL AORTA: The proximal, mid, and distal segments are normal in caliber. INFERIOR VENA CAVA: Visualized portions are normal. LIVER: The liver is normal in size. The liver contour is normal. Liver echotexture is slightly increased. No focal hepatic lesion. There is no intrahepatic biliary duct dilatation seen. GALLBLADDER: Normal. The gallbladder is physiologically distended without evidence of stones, sludge, polyps, wall thickening or pericholecystic fluid. COMMON BILE DUCT: Normal in caliber measuring 0.3 cm in diameter. RIGHT KIDNEY: Normal. No hydronephrosis. No renal calculi or focal parenchymal lesions. The kidney measures 10.9 cm in maximum dimension. LEFT KIDNEY: Normal. No hydronephrosis. No renal calculi or focal parenchymal lesions. The kidney measures 11.6 cm in maximum dimension. SPLEEN: Normal. The spleen measures 11.1 cm in maximum dimension. FREE FLUID: None. US/US abdomen complete IMPRESSION: Slightly echogenic liver otherwise unremarkable exam.
== END 2021-12-30 09:43 | disposition home or self-care (01) ==
LOC: HO.HMGCX 09:42
PROVIDERS: PCP Family Medicine; Visit Provider Family Medicine
DX: K76.9 Liver disease, unspecified (principal)
CPT/HCPCS: 76700

== ENCOUNTER 2022-11-04 20:09 | Inpatient (IN) | payer OTHER, SELFPAY ==
--- NOTE | ~2022-11-04 | CT_ITS ---
EXAMINATION: CT ABDOMEN AND PELVIS WITH AND WITHOUT CONTRAST: CT GI BLEEDING STUDY CLINICAL INFORMATION: Reason for Exam lower gi bleed. COMPARISON: No pertinent prior studies are available for comparison. TECHNIQUE: Multidetector volumetric imaging was performed from the lung bases to the pubic symphysis before and after the administration of: Intravenous contrast: 80 mL Omnipaque 350 2 minute delayed acquisition also performed. No contrast reaction reported MIP coronal, sagittal and coronal reformatted images were obtained on the technologist workstation. This CT examination was performed using dose optimization techniques as appropriate, variously including the following: *Automated exposure control *Adjustment of mA and/or kV according to patient size (this includes techniques or standardized protocols for targeted exams where dose is matched to indication/reason for exam; i.e. extremities or head) *Use of iterative reconstruction technique Total exam dose-length product 1523 mGy-cm FINDINGS: STOMACH: No abnormal wall thickening or mass. No intraluminal contrast accumulation to suggest hemorrhage. SMALL BOWEL: No abnormal wall thickening or dilation. No intraluminal contrast accumulation to suggest hemorrhage. COLON: No intraluminal contrast accumulation to suggest hemorrhage. No colonic wall thickening or pericolonic inflammatory changes. Normal appendix. LUNG BASES: Visualized lung bases are clear. Normal heart size. PLEURA: No pleural effusion. LIVER, GALLBLADDER, AND BILIARY TREE: The liver is normal in size, shape, and attenuation. No focal hepatic lesion or biliary ductal dilatation is present. The gallbladder is unremarkable with no evidence of radiopaque gallstones, gallbladder wall thickening, or obvious pericholecystic inflammatory changes. PANCREAS: Normal; no mass or surrounding fluid. SPLEEN: Normal size. No focal lesion. ADRENAL GLANDS: Normal; no mass. KIDNEYS AND URETERS: The kidneys are normal in size, shape, and attenuation. No hydronephrosis, hydroureter, or calculi. ABDOMINAL WALL: Small fat-containing right inguinal hernia is present. LYMPHOVASCULAR STRUCTURES: No lymphadenopathy. The aorta is normal in caliber. Mild atherosclerotic calcification. BLADDER: No focal mass or wall thickening seen. No bladder calculi. PELVIC VISCERA: The prostate and seminal vesicles are normal. OSSEOUS STRUCTURES: No acute or suspicious osseous abnormality. Mild degenerative change throughout the spine. CT/CT gi bleed abd pel wo/w IVcon IMPRESSION: No evidence of active GI bleed. No acute findings in the abdomen or pelvis.
[2022-11-04 20:38] VITALS: BP 127/80; BP 128/88; PULSE 65; PULSE 77; RESP 16; TEMP 36.6; O2SAT 96; O2SAT 97; BMI 27.1
[2022-11-04 20:41] VITALS: BP 127/80; PULSE 65; RESP 16; TEMP 36.6; O2SAT 96
[2022-11-04 20:47] LABS: MANUAL DIFF FLAG NO
[2022-11-04 20:53] LABS: Basophils Absolute Auto 0.1 X10*3/uL (0.0-0.2); Basophils Percent Auto 0.8 % (0-2); Eosinophils Absolute Auto 0.1 X10*3/uL (0.0-0.4); Eosinophils Percent Auto 1.5 % (0-4); Hematocrit 39.2 % (42.0-52.0); Hemoglobin 13.7 g/dl (14.0-18.0); Imm Gran Abs Auto 0.03 X10*3/uL (0.00-0.03); Imm Gran Pct Auto 0.4 % (0.0-0.4); Lymphocytes Absolute Auto 1.8 X10*3/uL (1.2-4.9); Lymphocytes Percent Auto 24.5 % (20-40); Mean Corpuscular HGB Conc 34.9 g/dl (31.0-36.0); Mean Corpuscular Hemoglobin 30.4 pg (27.0-33.0); Mean Corpuscular Volume 86.9 fL (80.0-98.0); Mean Platelet Volume 9.3 fL (9.4-12.4); Monocytes Absolute Auto 0.6 X10*3/uL (0.1-1.2); Monocytes Percent Auto 8.6 % (2-11); Neutrophils Absolute Auto 4.7 x10*3/uL (2.0-8.3); Neutrophils Percent Auto 64.2 % (45-73); Platelet Count 239 X10*3/uL (160-400); Red Blood Count 4.51 X10*6/uL (4.60-5.80); Red Cell Distribution Width 13.6 % (11.0-16.0); White Blood Count 7.3 X10*3/uL (4.8-10.8)
--- NOTE | 2022-11-04 21:01 | ED_ITS ---
HPI - General Adult General Chief complaint: GI Bleed Stated complaint: ? GI-Bleed Time Seen by Provider: 11/04/22 20:38 Source: patient and EMS Mode of arrival: EMS Limitations: no limitations History of Present Illness HPI narrative: This is a 52-year-old transgender male to female history of alcohol abuse, GI bl eeds presenting for evaluation of lower GI bleed, patient reports that she is passing bright red blood per rectum, tells me she has a complex history of this in the past. Patient tells me that when she used to drink heavily she used to have frequent GI bleeds however she has not drink in 6 months. Patient tells me that GI bleeding started yesterday and she is passing bright red blood without clots filling the toilet seat. Also present when she wipes. She does have a history of hemorrhoids. Patient reports fatigue, malaise, myalgias. In intermittent abdominal pain. Abdominal pain is diffuse in nature and worse when she has a bowel movement. Denies chest pain, shortness of breath, nausea, vomiting, headache, vision changes, dizziness. Related Data Home Medications Medication Instructions Recorded Confirmed albuterol sulfate 90 mcg/actuation 2 puff PO Q4-6H PRN Wheezing 12/15/21 12/15/21 aerosol inhaler (ProAir HFA) ascorbic acid (vitamin C) 500 mg 1 tab PO BID 12/15/21 12/15/21 tablet (Vitamin C) citalopram 20 mg tablet 1 tab PO DAILY 12/15/21 12/15/21 naltrexone 50 mg tablet 1 tab PO DAILY 12/15/21 12/15/21 estradiol 0.1 mg/24 hr weekly 2 patch topical QWEEK 11/04/22 11/04/22 transdermal patch finasteride 1 mg tablet 1 mg PO DAILY 11/04/22 11/04/22 spironolactone 25 mg tablet 25 mg PO BID 11/04/22 11/04/22 Allergies Allergy/AdvReac Type Severity Reaction Status Date / Time aripiprazole [From ABILIFY] Allergy Unknown HTN Verified 11/18/21 15:05 cefaclor [From CECLOR] Allergy Unknown HIVES, rash Verified 11/18/21 15:05 Cephalosporins Allergy Unknown RASH Verified 11/18/21 15:05 Review of Systems Review of Systems: Constitutional : No Weight loss, No Fever, No Chills, No Fatigue, No Malaise ENT/Mouth : No sore throat, No Rhinorrhea Eyes: No Eye Pain, No Swelling, No Redness Cardiovascular : No Chest Pain, No SOB, No Dyspnea on Exertion, No Orthopnea, No Edema, No Palpitations Respiratory : No Cough, No Sputum, No Wheezing Gastrointestinal : No Nausea, No Vomiting, No Diarrhea, No Constipation, No abdominal Pain, + Hematochezia, No Melena Genitourinary : No Dysuria, No Urinary Frequency, No Hematuria, Musculoskeletal : No joint pain, No Myalgias, No Joint Swelling Skin : No Skin Lesions, No rash Neuro : No Weakness, No Numbness, No Dizziness, No Headache Psych : No Anxiety/Panic, No Depression All other systems reviewed and are negative Yes all other systems are reviewed and are negative [facility] Past Medical History Attestation statement: The following information was validated with the patient. Source: old records reviewed and nursing notes reviewed Social History Social History Household Members: Family Housing: House Do you presently have visiting nurse or other home services: No Alcohol intake: former Patient Tobacco Use Status: Never used Tobacco Smoked in Last 30 Days: No Use of substances other than those prescribed or required for medical reasons: No Substance Use Type: Marijuana Advance Directives: No Advance Directives Information Provided: No service: No Current occupational status: unemployed Current occupation: Right handed. Physical Exam ED Vital Signs: Vital Signs - 24 hr 11/04/22 20:38 11/04/22 20:41 Temperature 97.8 F 97.8 F Pulse Rate 65 65 Respiratory Rate 16 16 Blood Pressure 127/80 127/80 Pulse Oximetry 96 96 Oxygen Delivery Method Room Air Room Air BMI result Body Mass Index 27.1 vss Appearance: Alert.? Oriented X3.? No acute distress.? Head: Normocephalic, atraumatic, no step-offs or deformities Eyes: Pupils equal, round and reactive to light.? ENT: Pharynx normal.? Neck: Normal inspection.? Neck supple.? CVS: Normal heart rate and rhythm.? Pulses normal.? Respiratory: No respiratory distress.? Breath sounds normal.? Abdomen: Soft and nontender.? Skin: Skin warm and dry.? Normal skin color.? Normal skin turgor.? Extremities: No lower extremity edema.? No calf ttp. 5/5 strength to bilateral upper and lower extremities Neuro: Oriented X 3.? No motor deficit.? No sensory deficit. CN 2-12 intact Sensitive exam: With gross amount of blood on DENISE, no external hemorrhoids appreciated. No signs of internal hemorrhoids. Course Reevaluation(s) Reevaluation #1: CBC with normocytic anemia, slightly deviating from patient's baseline. Could be secondary to GI bleed. Chemistry with no acute electrolyte abnormalities requiring intervention. Patient told me that they had to go to the bathroom, they went to the bathroom and returned with a hat filled with bright red blood, approximately 300 cc of blood mixed with stool. Time: 21:13 Reevaluation #2: I did speak to Dr. Recinos who is aware of this case and will follow while in the hospital. Patient will be admitted to the hospital for further evaluation treatment due to severity of lower GI bleed active bleeding. Repeat CBC ordered and CT bleeding study ordered. Time: 21:33 Medical Decision Making Medical Decision Making [facility] Narrative: 2100 52-year-old male to female transgender presents with rectal bleeding since yesterday. History of hemorrhage Physical exam benign. Concerns for lower GI bleed this could be secondary to hemorrhoids. Will rule out acute blood loss anemia. Will rule out orthostatic hypotension electrolyte abnormalities. No signs of acute abdomen. Plan at this time Differential Diagnosis Differential Diagnoses: The differential diagnosis associated with the presentation includes Concerns for lower GI bleed this could be secondary to hemorrhoids. Will rule out acute blood loss anemia. Will rule out orthostatic hypotension electrolyte abnormalities. No signs of acute abdomen. Admission/Observation Consideration of admission/observation: Escalation of care including admission/observation considered Lab Data [facility] Lab Attestation statement: I reviewed the patient's lab results. 11/04/22 20:44 11/04/22 20:44 Labs: Lab Results 11/04/22 11/04/22 11/04/22 Range/Units 20:44 20:44 21:23 WBC 7.3 (4.8-10.8) X10*3/uL RBC 4.51 L (4.60-5.80) X10*6/uL Hgb 13.7 L (14.0-18.0) g/dl Hct 39.2 L (42.0-52.0) % MCV 86.9 (80.0-98.0) fL MCH 30.4 (27.0-33.0) pg MCHC 34.9 (31.0-36.0) g/dl RDW 13.6 (11.0-16.0) % Plt Count 239 D (160-400) X10*3/uL MPV 9.3 L (9.4-12.4) fL Immature Gran % (Auto) 0.4 (0.0-0.4) % Neut % (Auto) 64.2 (45-73) % Lymph % (Auto) 24.5 (20-40) % [place] % (Auto) 8.6 (2-11) % Eos % (Auto) 1.5 (0-4) % Baso % (Auto) 0.8 (0-2) % Lymph # (Auto) 1.8 (1.2-4.9) X10*3/uL [place] # (Auto) 0.6 (0.1-1.2) X10*3/uL Eos # (Auto) 0.1 (0.0-0.4) X10*3/uL Baso # (Auto) 0.1 (0.0-0.2) X10*3/uL Abs Immat Gran (auto) 0.03 (0.00-0.03) X10*3/uL Absolute Neuts (auto) 4.7 (2.0-8.3) x10*3/uL Absolute Nucleated RBC 0.000 (0.0-0.012) X10*3/uL Nucleated RBC % (auto) 0.0 (0.0-0.2) /100WBC Sodium 140 (135-145) mmol/L Potassium 4.2 (3.3-5.1) mmol/L Chloride 109 H (96-108) mmol/L Carbon Dioxide 23 (22-29) mmol/L Anion Gap 12 (12-20) BUN 17 H (9-16) mg/dL Creatinine 1.24 (0.5-1.4) mg/dL Estim Creat Clear Calc 78.2 Estimated GFR > 60 Random Glucose 96 (60-115) mg/dL Calcium 9.0 (8.4-10.2) mg/dL Magnesium 1.8 (1.6-2.6) mg/dL Total Bilirubin 0.8 (0.0-1.0) mg/dL AST 22 (5-37) U/L ALT 25 (0-40) U/L Alkaline Phosphatase 73 (39-117) U/L Total Protein 6.1 L (6.5-8.0) g/dL Albumin 3.9 (3.5-5.0) g/dL Stool Occult Blood POSITIVE (NEGATIVE) Independent Interpretation I performed an independent interpretation of an: CT Scan Radiology Impression Discussion of test interpretation with radiology: I have reviewed the radiologist's reading. External Record Review External record reviewed: Inpatient record, Office record, Outpatient record, Prior outpatient labs, Prior outpatient radiology, Primary care record and Outside ED record Core Measures AMI core measures followed: Yes Measure exclusions: not indicated Critical Care Time Critical Care Time Critical Care Time: Yes Total Critical Care Time: 35 Attestation: I attest to this time spent taking care of the patient, obtaining history, physical, reviewing labs, imaging, speaking to my attending, speaking to specialist. Discharge Plan Discharge Clinical Impression: Acute lower gastrointestinal bleeding Patient Disposition: Admitted As Inpatient Prescriptions: No Action naltrexone 50 mg tablet 1 tab PO DAILY citalopram 20 mg tablet 1 tab PO DAILY ascorbic acid (vitamin C) [Vitamin C] 500 mg tablet 1 tab PO BID trazodone 100 mg tablet 2 tab PO DAILY docusate sodium 100 mg capsule 1 - 2 cap PO BEDTIME PRN (Reason: constipation) albuterol sulfate [ProAir HFA] 90 mcg/actuation HFA aerosol inhaler 2 puff PO Q4-6H PRN (Reason: Wheezing)
[2022-11-04 21:06] LABS: Alanine Aminotransferase 25 U/L (0-40); Albumin Level 3.9 g/dL (3.5-5.0); Alkaline Phosphatase 73 U/L (39-117); Anion Gap 12 (12-20); Aspartate Amino Transferase 22 U/L (5-37); Bilirubin Total 0.8 mg/dL (0.0-1.0); Blood Urea Nitrogen 17 mg/dL (9-16); Carbon Dioxide 23 mmol/L (22-29); Chloride 109 mmol/L (96-108); Creatinine Clr Calc Pharmacy 78.2; Estimated Glomerular Filt Rate > 60; Glucose Random 96 mg/dL (60-115); Magnesium 1.8 mg/dL (1.6-2.6); Potassium 4.2 mmol/L (3.3-5.1); Sodium 140 mmol/L (135-145); Total Protein 6.1 g/dL (6.5-8.0)
[2022-11-04 21:30] LABS: OBS Int Ctl Valid YES; OBS1 POSITIVE (NEGATIVE)
--- NOTE | 2022-11-04 21:32 | P.HPHOSP_ITS ---
History of Present Illness Date of Service: 11/04/22 Attending physician on admission: Anika Kimbrough Chief Complaint: Bright red blood per rectum Pt is a 52-year-old transgender male to female with a PMH significant for asthma, alcohol abuse, depression, and anxiety?who presents to the ED with?bright red blood per rectum and diarrhea since yesterday. Today bleeding and diarrhea worsened and this evening pt experienced painful cramping, 4+ episodes in a 1-2 hour span, and became lightheaded and dizzy after episodes. Decided to come to the ED for further evaluation. Of note, pt has a long history of heavy alcohol use, and states she used to experience similar symptoms while drinking. Has been diagnosed with internal and external hemorroids. Pt is currently staying in [facility] in [place] and has been sober for six months. Pt has been feeling fatigued, tired, and had some nausea the past two days, but denies fever, chills, and vomiting. Occasional headache. Denies chest pain/pressure, palpitations. No SOB. In the ED patient was afebrile and normotensive. Labs were significant for H&H is 13.7/39.2 (slightly below baseline), creatinine slightly elevated at 1.24. Stool positive for occult blood. CT of abdomen/pelvis, pending. The ED talked to GI who advised to admit the pt and they will see them in the morning. Pt will be admitted to the hospital for evaluation and further workup of acute GI bleed. Review of Systems Review of Systems: Bright red blood per rectum Diarrhea Abdominal cramping Nausea Denies fever, chills, vomiting No chest pain/pressure, palpitations Denies shortness of breath Yes all other systems are reviewed and are negative [facility] Social History Household Members: Family Housing: House Do you presently have visiting nurse or other home services: No Alcohol intake: former Patient Tobacco Use Status: Never used Tobacco Smoked in Last 30 Days: No Use of substances other than those prescribed or required for medical reasons: No Substance Use Type: Marijuana Advance Directives: No Advance Directives Information Provided: No service: No Current occupational status: unemployed Current occupation: Right handed. Meds Allergies Allergy/AdvReac Type Severity Reaction Status Date / Time aripiprazole [From ABILIFY] Allergy Unknown HTN Verified 11/18/21 15:05 cefaclor [From CECLOR] Allergy Unknown HIVES, rash Verified 11/18/21 15:05 Cephalosporins Allergy Unknown RASH Verified 11/18/21 15:05 Active Medications: Current Medications Acetaminophen (Acetaminophen 325 Mg Tablet) 650 mg PO Q6H PRN PRN Reason: Pain, Mild (Pain Scale 1-3) Melatonin (Melatonin 3 Mg Tablet) 6 mg PO BEDTIME PRN PRN Reason: Insomnia Ondansetron HCl (Ondansetron Hcl 4 Mg/2 Ml Vial) 4 mg IVPUSH Q8H PRN PRN Reason: Nausea and Vomiting Pharmacy Consult (Consult Rx Perform Med Rec) 1 each MISCELLANE ONCE PRN PRN Reason: Consult order Sodium Chloride (0.9 % Sodium Chloride Flush 3 Ml Syringe) 3 ml IVFLUSH QSHIFT [facility] Home Medications Medication Instructions Recorded Confirmed Last Taken Type albuterol sulfate 90 mcg/actuation 2 puff PO Q4-6H PRN Wheezing 12/15/21 11/04/22 Unknown History aerosol inhaler (ProAir HFA) ascorbic acid (vitamin C) 500 mg 1 tab PO BID 12/15/21 11/04/22 Unknown History tablet (Vitamin C) citalopram 20 mg tablet 1 tab PO DAILY 12/15/21 11/04/22 Unknown History naltrexone 50 mg tablet 1 tab PO DAILY 12/15/21 11/04/22 Unknown History estradiol 0.1 mg/24 hr weekly 2 patch topical QWEEK 11/04/22 11/04/22 Unknown History transdermal patch finasteride 1 mg tablet 1 mg PO DAILY 11/04/22 11/04/22 Unknown History spironolactone 25 mg tablet 25 mg PO BID 11/04/22 11/04/22 Unknown History Physical Exam Vital Signs and Narrative: Vital Signs: Last Vital Signs Temp 97.8 F 11/04/22 20:41 Pulse 65 11/04/22 20:41 Resp 16 11/04/22 20:41 BP 127/80 11/04/22 20:41 Pulse Ox 96 11/04/22 20:41 O2 Del Method Room Air 11/04/22 20:41 BMI result Body Mass Index 27.1 Constitutional: Alert, in no acute distress. Mental Status: Oriented to person, place and time. Eyes: Pupils are equal, round, and reactive to light. Ear, Nose, and Throat: Oropharynx clear, mucous membranes moist. Ears and nose without deformities. Trachea midline. Respiratory: Clear to auscultation bilaterally. No wheezing, rales, or rhonchi. Cardiovascular: S1, S2 regular. No murmurs, rubs, or gallops. Gastrointestinal: Abdomen soft, non-tender, non-distended. Normal bowel sounds. Neurologic: Cranial nerves II-XII are grossly intact bilaterally. No focal neurological deficits. Moves all extremities spontaneously. Skin: No rashes or lesions noted. Musculoskeletal: No cyanosis or clubbing. Extremities: No edema. Psychiatric: Normal mood and affect. Results Labs 11/04/22 20:44 11/04/22 20:44 Labs: Laboratory Results - last 24 hr 11/04/22 11/04/22 11/04/22 20:44 20:44 21:23 MCV 86.9 MCH 30.4 MCHC 34.9 RDW 13.6 Plt Count 239 D MPV 9.3 L Immature Gran % (Auto) 0.4 Neut % (Auto) 64.2 Lymph % (Auto) 24.5 [place] % (Auto) 8.6 Eos % (Auto) 1.5 Baso % (Auto) 0.8 Lymph # (Auto) 1.8 [place] # (Auto) 0.6 Eos # (Auto) 0.1 Baso # (Auto) 0.1 Abs Immat Gran (auto) 0.03 Absolute Neuts (auto) 4.7 Absolute Nucleated RBC 0.000 Nucleated RBC % (auto) 0.0 Anion Gap 12 Estim Creat Clear Calc 78.2 Estimated GFR > 60 Random Glucose 96 Calcium 9.0 Magnesium 1.8 Total Bilirubin 0.8 AST 22 ALT 25 Alkaline Phosphatase 73 Total Protein 6.1 L Albumin 3.9 Stool Occult Blood POSITIVE Assessment and Plan (1) Acute lower gastrointestinal bleeding: Status: Acute Plan Pt is a 52-year-old transgender male to female with a PMH significant for asthma, alcohol abuse, depression, and anxiety?who presents to the ED with?bright red blood per rectum and diarrhea since yesterday. Pt will be admitted to the hospital for evaluation and further workup of acute GI bleed. Acute lower GI bleed Patient has been experiencing bright red blood per rectum since yesterday Hemorrhoids vs inflammatory process vs infectious process Patient afebrile, no leukocytosis, H&H 13.7/39.2, slightly below previous baseline Check CT of abdomen/pelvis, pending Clear liquid diet now, NPO after midnight in anticipation of possible procedure tomorrow GI consult Asthma Not in acute exacerbation: No wheezing or SOB, lungs CTA Continue home inhaler Alcohol use disorder Continue naltrexone Full Code Attending:?Dr. Kimbrough DVT Prophylaxis: Pneumatic boots Pt will require a hospitalization of at least two nights for treatment and further evaluation of acute lower GI bleed. Time Spent With Patient Time: Total time managing care of this patient today ____ minutes. Quality Stroke Does the patient have a stroke diagnosis?: No VTE Prior VTE?: No VTE Risk Level:: Medical - moderate - high VTE Device Contraindication: N/A - Device Ordered VTE Drug Contraindication: Treatment Not Indicated
--- NOTE | 2022-11-04 21:33 | PHA.MEDREC ---
Pharmacy Consult ? Medication Reconciliation Pharmacy has completed the medication reconciliation. Patient had a list
[2022-11-04] MEDS: Pantoprazole Sodium 40 MG/10 ML VIAL 80 MG IVPUSH (21:44)
[2022-11-04] MEDS: 0.9 % Sodium Chloride 1,000 ML 999 ML IV (21:44)
[2022-11-04 22:23] VITALS: BP 108/72; PULSE 84
[2022-11-04 22:24] VITALS: BP 113/74; BP 122/78; PULSE 70; PULSE 71
[2022-11-04 22:25] VITALS: BP 122/78; PULSE 71; RESP 18; TEMP 36.7; O2SAT 96
[2022-11-04 22:42] LABS: COVID-19 Test Negative (Negative); IDNOW Serial# 55D5AD1C
[2022-11-04] MEDS: iohexoL 350 MG/ML 100 ML INFUS..BTL IV (22:56)
--- NOTE | 2022-11-04 22:59 | PC.NURSE ---
Pt stated she has already taken her night time medications prior to being brought into ER. Pt stated she will not need the esteridiol patch as she puts it on on Sundays, and she will have someone bring in her finasteride for pharmacy
[2022-11-04 23:31] VITALS: BP 110/70; PULSE 60; RESP 18; TEMP 36.1; O2SAT 97
[2022-11-04] MEDS: 0.9 % Sodium Chloride Flush 3 ML SYRINGE IVFLUSH (23:39)
[2022-11-05 00:03] LABS: Appearance Urine Clear; Color Urine Yellow; Glucose Urine UA Negative (Negative); Leukocyte Esterase Urine Negative (Negative); Nitrite Urine Negative (Negative); PH 5.5 (5.0-9.0); Specific Gravity - Urine >= 1.030 (1.005-1.025); Urine Blood Negative (Negative); Urine Ketones Negative (Negative); Urine Protein Negative (Neg-Trace)
[2022-11-05 00:45] LABS: MANUAL DIFF FLAG NO
[2022-11-05 00:46] LABS: Basophils Absolute Auto 0.1 X10*3/uL (0.0-0.2); Basophils Percent Auto 0.6 % (0-2); Eosinophils Absolute Auto 0.2 X10*3/uL (0.0-0.4); Eosinophils Percent Auto 1.9 % (0-4); Hematocrit 36.2 % (42.0-52.0); Hemoglobin 12.6 g/dl (14.0-18.0); Imm Gran Abs Auto 0.01 X10*3/uL (0.00-0.03); Imm Gran Pct Auto 0.1 % (0.0-0.4); Lymphocytes Absolute Auto 2.1 X10*3/uL (1.2-4.9); Lymphocytes Percent Auto 27.4 % (20-40); Mean Corpuscular HGB Conc 34.8 g/dl (31.0-36.0); Mean Corpuscular Hemoglobin 30.3 pg (27.0-33.0); Mean Platelet Volume 9.3 fL (9.4-12.4); Monocytes Absolute Auto 0.6 X10*3/uL (0.1-1.2); Monocytes Percent Auto 7.1 % (2-11); Neutrophils Absolute Auto 4.9 x10*3/uL (2.0-8.3); Neutrophils Percent Auto 62.9 % (45-73); Platelet Count 206 X10*3/uL (160-400); Red Blood Count 4.16 X10*6/uL (4.60-5.80); Red Cell Distribution Width 13.6 % (11.0-16.0); White Blood Count 7.8 X10*3/uL (4.8-10.8)
[2022-11-05 03:57] VITALS: BP 101/67; PULSE 54; RESP 14; TEMP 36; O2SAT 96
[2022-11-05 06:35] LABS: MANUAL DIFF FLAG NO
[2022-11-05 06:38] LABS: Basophils Absolute Auto 0.1 X10*3/uL (0.0-0.2); Eosinophils Absolute Auto 0.2 X10*3/uL (0.0-0.4); Eosinophils Percent Auto 2.5 % (0-4); Hematocrit 37.7 % (42.0-52.0); Imm Gran Abs Auto 0.02 X10*3/uL (0.00-0.03); Imm Gran Pct Auto 0.3 % (0.0-0.4); Lymphocytes Percent Auto 28.8 % (20-40); Mean Corpuscular HGB Conc 34.5 g/dl (31.0-36.0); Mean Corpuscular Hemoglobin 30.5 pg (27.0-33.0); Mean Corpuscular Volume 88.5 fL (80.0-98.0); Mean Platelet Volume 9.6 fL (9.4-12.4); Monocytes Absolute Auto 0.6 X10*3/uL (0.1-1.2); Monocytes Percent Auto 8.3 % (2-11); Neutrophils Percent Auto 59.1 % (45-73); Platelet Count 197 X10*3/uL (160-400); Red Blood Count 4.26 X10*6/uL (4.60-5.80); Red Cell Distribution Width 13.4 % (11.0-16.0); White Blood Count 6.8 X10*3/uL (4.8-10.8)
[2022-11-05 06:52] LABS: Anion Gap 11 (12-20); Blood Urea Nitrogen 16 mg/dL (9-16); Calcium 8.3 mg/dL (8.4-10.2); Carbon Dioxide 24 mmol/L (22-29); Chloride 109 mmol/L (96-108); Creatinine Clr Calc Pharmacy 94.1; Estimated Glomerular Filt Rate > 60; Glucose Random 90 mg/dL (60-115); Potassium 4.1 mmol/L (3.3-5.1); Sodium 140 mmol/L (135-145)
[2022-11-05 07:48] VITALS: BP 104/57; PULSE 65; RESP 18; TEMP 36.3; O2SAT 97
--- NOTE | 2022-11-05 08:21 | P.PNIM_ITS ---
Subjective Subjective Date of Service: 11/05/22 Interval History: f/u on gib, no further bleed overnight, h/h stable without drop Physical Exam Vital Signs: Vital Signs: Last Vital Signs Temp 97.4 F 11/05/22 07:48 Pulse 65 11/05/22 07:48 Resp 18 11/05/22 07:48 BP 104/57 L 11/05/22 07:48 Pulse Ox 97 11/05/22 07:48 O2 Del Method Room Air 11/05/22 07:48 BMI result Body Mass Index 27.1 Const: Other: General: AO X 3, no acute distress Resp: CTA bilateral CVS: S1,S2,RRR GI: +BS, NT, no distention Skin: No rash Neuro: motor grossly intact Psych: appropriate affect Objective Data Active Medications Acetaminophen (Acetaminophen 325 Mg Tablet) 650 mg PO Q6H PRN PRN Reason: Pain, Mild (Pain Scale 1-3) Albuterol Sulfate (Albuterol Sulfate 90 Mcg 8 Gm Inhaler) 2 puff INHALE Q4H PRN PRN Reason: Wheezing Ascorbic Acid (Ascorbic Acid 500 Mg Tablet) 500 mg PO BID [facility] Escitalopram Oxalate (Escitalopram Oxalate 10 Mg Tablet) 10 mg PO DAILY [facility] Melatonin (Melatonin 3 Mg Tablet) 6 mg PO BEDTIME PRN PRN Reason: Insomnia Naltrexone HCl (Naltrexone Hcl 50 Mg Tablet) 50 mg PO DAILY [facility] Non-Formulary Medication (Estradiol) 2 patch TOPICAL QWEEK [facility] Non-Formulary Medication (Finasteride) 1 mg PO DAILY [facility] Ondansetron HCl (Ondansetron Hcl 4 Mg/2 Ml Vial) 4 mg IVPUSH Q8H PRN PRN Reason: Nausea and Vomiting Pharmacy Consult (Consult Rx Perform Med Rec) 1 each MISCELLANE ONCE PRN PRN Reason: Consult order Sodium Chloride (0.9 % Sodium Chloride Flush 3 Ml Syringe) 3 ml IVFLUSH QSHIFT [facility] Last Admin: 11/04/22 23:39 Dose: 3 ml Documented By: JENNIFER Labs 11/05/22 06:08 11/05/22 06:08 Labs: Laboratory Results - last 24 hr 11/04/22 11/04/22 11/04/22 20:44 20:44 21:23 MCV 86.9 MCH 30.4 MCHC 34.9 RDW 13.6 Plt Count 239 D MPV 9.3 L Immature Gran % (Auto) 0.4 Neut % (Auto) 64.2 Lymph % (Auto) 24.5 [place] % (Auto) 8.6 Eos % (Auto) 1.5 Baso % (Auto) 0.8 Lymph # (Auto) 1.8 [place] # (Auto) 0.6 Eos # (Auto) 0.1 Baso # (Auto) 0.1 Abs Immat Gran (auto) 0.03 Absolute Neuts (auto) 4.7 Absolute Nucleated RBC 0.000 Nucleated RBC % (auto) 0.0 Anion Gap 12 Estim Creat Clear Calc 78.2 Estimated GFR > 60 Random Glucose 96 Calcium 9.0 Magnesium 1.8 Total Bilirubin 0.8 AST 22 ALT 25 Alkaline Phosphatase 73 Total Protein 6.1 L Albumin 3.9 Urine Color Urine Appearance Urine pH Ur Specific [place] Urine Protein Urine Glucose (UA) Urine Ketones Urine Blood Urine Nitrite Ur Leukocyte Esterase Stool Occult Blood POSITIVE COVID-19 (JAZZY) COVID-19 [facility] Com Blood Type Antibody Screen 11/04/22 11/04/22 11/04/22 21:42 22:13 23:50 MCV MCH MCHC RDW Plt Count MPV Immature Gran % (Auto) Neut % (Auto) Lymph % (Auto) [place] % (Auto) Eos % (Auto) Baso % (Auto) Lymph # (Auto) [place] # (Auto) Eos # (Auto) Baso # (Auto) Abs Immat Gran (auto) Absolute Neuts (auto) Absolute Nucleated RBC Nucleated RBC % (auto) Anion Gap Estim Creat Clear Calc Estimated GFR Random Glucose Calcium Magnesium Total Bilirubin AST ALT Alkaline Phosphatase Total Protein Albumin Urine Color Yellow Urine Appearance Clear Urine pH 5.5 Ur Specific [place] >= 1.030 H Urine Protein Negative Urine Glucose (UA) Negative Urine Ketones Negative Urine Blood Negative Urine Nitrite Negative Ur Leukocyte Esterase Negative Stool Occult Blood COVID-19 (JAZZY) Negative COVID-19 [facility] Com See Note Blood Type O Positive Antibody Screen NEGATIVE 11/05/22 11/05/22 11/05/22 00:42 06:08 06:08 MCV 87.0 88.5 MCH 30.3 30.5 MCHC 34.8 34.5 RDW 13.6 13.4 Plt Count 206 197 MPV 9.3 L 9.6 Immature Gran % (Auto) 0.1 0.3 Neut % (Auto) 62.9 59.1 Lymph % (Auto) 27.4 28.8 [place] % (Auto) 7.1 8.3 Eos % (Auto) 1.9 2.5 Baso % (Auto) 0.6 1.0 Lymph # (Auto) 2.1 2.0 [place] # (Auto) 0.6 0.6 Eos # (Auto) 0.2 0.2 Baso # (Auto) 0.1 0.1 Abs Immat Gran (auto) 0.01 0.02 Absolute Neuts (auto) 4.9 4.0 Absolute Nucleated RBC 0.000 0.000 Nucleated RBC % (auto) 0.0 0.0 Anion Gap 11 L Estim Creat Clear Calc 94.1 Estimated GFR > 60 Random Glucose 90 Calcium 8.3 L D Magnesium Total Bilirubin AST ALT Alkaline Phosphatase Total Protein Albumin Urine Color Urine Appearance Urine pH Ur Specific [place] Urine Protein Urine Glucose (UA) Urine Ketones Urine Blood Urine Nitrite Ur Leukocyte Esterase Stool Occult Blood COVID-19 (JAZZY) COVID-19 Clin Com Blood Type Antibody Screen Assessment and Plan (1) Acute lower gastrointestinal bleeding: Status: Acute Plan 2-year-old transgender male to female with a PMH significant for asthma, alcohol abuse, depression, and anxiety?who presents to the ED with?bright red blood per rectum and diarrhea since yesterday. Pt will be admitted to the hospital for evaluation and further workup of acute GI bleed. Acute lower GI bleed without acute blood loss anemia, CT no source of bleed. Will discuss next step with GI, probably needs colonoscopy down the road mild intermittent Asthma, no exacerbation Alcohol use disorder Continue naltrexone Full Code Attending:?Dr. Kimbrough DVT Prophylaxis: Pneumatic boots Need for inpatient; acute gi bleed work up Time Spent With Patient Time: Total time managing care of this patient today ____ minutes. Quality Stroke Does the patient have a stroke diagnosis?: No VTE Prior VTE?: No VTE Risk Level:: Medical - moderate - high VTE Device Contraindication: N/A - Device Ordered VTE Drug Contraindication: Treatment Not Indicated
[2022-11-05] MEDS: Ascorbic Acid 500 MG TABLET PO ×2 (08:53→19:44)
[2022-11-05] MEDS: 0.9 % Sodium Chloride Flush 3 ML SYRINGE IVFLUSH ×3 (08:53→19:44)
[2022-11-05] MEDS: Escitalopram Oxalate 10 MG TABLET PO (08:53)
[2022-11-05] MEDS: Naltrexone HCl 50 MG TABLET PO (08:54)
[2022-11-05 11:16] VITALS: BP 156/76; PULSE 59; RESP 18; TEMP 36.4; O2SAT 93
--- NOTE | 2022-11-05 11:47 | MHC.CM.PN ---
PT, WHO PREFERS THE NAME BENNIE, REPORTS SHE LIVES IN A SOBER LIVING [facility] SHE REPORTS SHE IS ALSO ACTIVE WITH AA SHE REPORTS SHE HAS NO DME AND NO SERVICES SHE IS COVID [place] DECLINES TO COMPLETE A HCP PCP: DUYEN WEBBER AT [facility] IN [place] DCP: RETURN TO SOBER LIVING HOME PARENTS WILL TRANSPORT
--- NOTE | 2022-11-05 12:31 | PC.NURSE ---
Patient is alert and oriented to person, place, time and event. Patient is steady on feet and independent in room. Patient had 1 one watery stool of juan red blood at 11 am this morning. No pain, dizziness or nausea associated with bowel movement. Patient currently sleeping in bed, bilateral chest raises observed, patient is normal skin color for race and heart rate of 72 observed on tele-monitor. Frequent rounding to maintain patient safety.
[2022-11-05 15:55] VITALS: BP 135/76; PULSE 60; RESP 20; O2SAT 96
--- NOTE | 2022-11-05 16:06 | PM.GICN ---
History of Present Illness Data of Consult Service Date: 11/05/22 Requesting physician: Ángel Gannon Primary Care Provider: Unknown Physician HPI Reason for consult: Gi bleed 52-year-old transgender male to female, with hx of asthma, alcohol abuse, depression, and anxiety?who I am seeing for assessment for GI bleeding. Patient was noted to have several black marc stools mixed with bright red blood which were diarrheal in consistency. Pt has been feeling fatigued, tired, and had some nausea the past two days, but denies fever, chills, and vomiting and no abdominal pain. Has had bleeding on and off for long time attributed to alcohol abuse but been sober now for a while so got concerned. Occasional headache. Denies chest pain/pressure, palpitations. No SOB. Not taking nsaids or blood thinners. Labs were significant for H&H is 13.7/39.2, *13 g/dl today) creatinine slightly elevated at 1.24.? Stool positive for occult blood. CT of abdomen/pelvis, wwith no active gi lbeed noted PMFSH Family History Pertinent family history: no FH of CRC, pos for CAD Social History Social History Household Members: Other Household Members Other:: lives at sober house Housing: Other Do you presently have visiting nurse or other home services: No Alcohol intake: former Patient Tobacco Use Status: Never used Tobacco Substance Use Type: Marijuana service: No Current occupational status: unemployed Current occupation: Right handed. Meds Allergies Allergy/AdvReac Type Severity Reaction Status Date / Time aripiprazole [From ABILIFY] Allergy Unknown HTN Verified 11/18/21 15:05 cefaclor [From CECLOR] Allergy Unknown HIVES, rash Verified 11/18/21 15:05 Cephalosporins Allergy Unknown RASH Verified 11/18/21 15:05 Active Medications: Current Medications Acetaminophen (Acetaminophen 325 Mg Tablet) 650 mg PO Q6H PRN PRN Reason: Pain, Mild (Pain Scale 1-3) Albuterol Sulfate (Albuterol Sulfate 90 Mcg 8 Gm Inhaler) 2 puff INHALE Q4H PRN PRN Reason: Wheezing Ascorbic Acid (Ascorbic Acid 500 Mg Tablet) 500 mg PO BID [facility] Last Admin: 11/05/22 08:53 Dose: 500 mg Escitalopram Oxalate (Escitalopram Oxalate 10 Mg Tablet) 10 mg PO DAILY [facility] Last Admin: 11/05/22 08:53 Dose: 10 mg Melatonin (Melatonin 3 Mg Tablet) 6 mg PO BEDTIME PRN PRN Reason: Insomnia Naltrexone HCl (Naltrexone Hcl 50 Mg Tablet) 50 mg PO DAILY [facility] Last Admin: 11/05/22 08:54 Dose: 50 mg (Estradiol 0.1 Mg/24 (Hr Patch Weekly)) 2 patch TOPICAL Q7D [facility] (Finasteride 1 Mg (Tablet)) 1 mg PO DAILY [facility] Ondansetron HCl (Ondansetron Hcl 4 Mg/2 Ml Vial) 4 mg IVPUSH Q8H PRN PRN Reason: Nausea and Vomiting Pharmacy Consult (Consult Rx Perform Med Rec) 1 each MISCELLANE ONCE PRN PRN Reason: Consult order Polyethylene Glycol/Electrolytes (Peg 3350/Na Sulf,Bicarb,Cl/Kcl 4,000 Ml Soln.Recon) 4,000 ml PO ONCE ONE Stop: 11/05/22 19:01 Sodium Chloride (0.9 % Sodium Chloride Flush 3 Ml Syringe) 3 ml IVFLUSH QSHIFT [facility] Last Admin: 11/05/22 15:57 Dose: 3 ml Home Medications Medication Instructions Recorded Confirmed Last Taken Type albuterol sulfate 90 mcg/actuation 2 puff PO Q4-6H PRN Wheezing 12/15/21 11/04/22 Unknown History aerosol inhaler (ProAir HFA) ascorbic acid (vitamin C) 500 mg 1 tab PO BID 12/15/21 11/04/22 Unknown History tablet (Vitamin C) citalopram 20 mg tablet 1 tab PO DAILY 12/15/21 11/04/22 Unknown History naltrexone 50 mg tablet 1 tab PO DAILY 12/15/21 11/04/22 Unknown History estradiol 0.1 mg/24 hr weekly 2 patch topical QWEEK 11/04/22 11/04/22 Unknown History transdermal patch finasteride 1 mg tablet 1 mg PO DAILY 11/04/22 11/04/22 Unknown History spironolactone 25 mg tablet 25 mg PO BID 11/04/22 11/04/22 Unknown History Physical Exam Vital Signs: Vital Signs: Last Vital Signs Temp 97.6 F 11/05/22 11:16 Pulse 60 11/05/22 15:55 Resp 20 11/05/22 15:55 BP 135/76 11/05/22 15:55 Pulse Ox 96 11/05/22 15:55 O2 Del Method Room Air 11/05/22 15:55 BMI result Body Mass Index 27.1 EXAM: GENERAL: The patient is well developed and nontoxic. VITAL SIGNS:see workflow HEENT: Nonicteric sclerae, PERRLA, EOMI. Oropharynx clear. Moist mucous membranes. Conjunctivae appear well perfused. No thyroid mass. CHEST: Chest wall is nontender. HEART: Regular rate and rhythm without murmurs. LUNGS: Clear to auscultation bilaterally. ABDOMEN: Soft, positive bowel sounds, nontender, no organomegaly.no flank tenderness SKIN: No rash, no excessive bruising, petechiae, or purpura. NEUROLOGIC: Cranial nerves II-XII intact without motor/sensory deficit. psych--nml Results Labs 11/05/22 06:08 11/05/22 06:08 Labs: Short CBC 11/04/22 11/05/22 11/05/22 Range/Units 20:44 00:42 06:08 WBC 7.3 7.8 6.8 (4.8-10.8) X10*3/uL Hgb 13.7 L 12.6 L 13.0 L (14.0-18.0) g/dl Hct 39.2 L 36.2 L 37.7 L (42.0-52.0) % Plt Count 239 D 206 197 (160-400) X10*3/uL BMP 11/04/22 11/05/22 20:44 06:08 Sodium 140 140 Potassium 4.2 4.1 Chloride 109 H 109 H Carbon Dioxide 23 24 BUN 17 H 16 Creatinine 1.24 1.03 Calcium 9.0 8.3 L D Liver Function 11/04/22 Range/Units 20:44 Total Bilirubin 0.8 (0.0-1.0) mg/dL AST 22 (5-37) U/L ALT 25 (0-40) U/L Alkaline Phosphatase 73 (39-117) U/L Albumin 3.9 (3.5-5.0) g/dL Urine 11/04/22 Range/Units 23:50 Urine Color Yellow Urine Appearance Clear Urine pH 5.5 (5.0-9.0) Ur Specific [place] >= 1.030 H (1.005-1.025) Urine Protein Negative (Neg-Trace) mg/dL Urine Glucose (UA) Negative (Negative) mg/dL Imaging CT scan - abdomen: Attestation: I personally reviewed and interpreted this imaging study as follows: (no active bleeding seen, small inguinal hernia) Assessment and Plan (1) Acute lower gastrointestinal bleeding: Status: Acute Plan 1/ Acute GI bleed, ddx; hemorrhoidal, diverticular, polyp/mass or colitis. vs upper Gi bleeding given description of stool by patient PLAN: 1/clears today 2/ book for egd and colon tomorrow 3/ Can commence low dose PPI meantime 4/ check ferritin, b12, folate Time Spent With Patient Time: Total time managing care of this patient today ____ minutes. Procedures Date of Service Date of Service: 11/05/22
[2022-11-05] MEDS: PEG 3350/Na Sulf,Bicarb,Cl/KCL 4,000 ML SOLN.RECON 4000 ML PO (17:40)
[2022-11-05 19:31] VITALS: BP 122/82; PULSE 81; RESP 20; TEMP 36.2; O2SAT 96
[2022-11-05 22:39] VITALS: BP 119/78; PULSE 66; RESP 18; TEMP 36.9; O2SAT 96
[2022-11-06 02:43] VITALS: BP 108/63; PULSE 67; RESP 16; TEMP 36.6; O2SAT 96
[2022-11-06 07:15] VITALS: BP 109/55; PULSE 62; RESP 20; TEMP 36.6; O2SAT 96
[2022-11-06 08:28] LABS: Hematocrit 39.2 % (42.0-52.0); Hemoglobin 13.4 g/dl (14.0-18.0); Mean Corpuscular HGB Conc 34.2 g/dl (31.0-36.0); Mean Corpuscular Volume 87.9 fL (80.0-98.0); Mean Platelet Volume 9.1 fL (9.4-12.4); Platelet Count 206 X10*3/uL (160-400); Red Blood Count 4.46 X10*6/uL (4.60-5.80); Red Cell Distribution Width 13.4 % (11.0-16.0); White Blood Count 5.6 X10*3/uL (4.8-10.8)
[2022-11-06] MEDS: Ascorbic Acid 500 MG TABLET PO (08:53)
[2022-11-06] MEDS: Escitalopram Oxalate 10 MG TABLET PO (08:53)
[2022-11-06] MEDS: 0.9 % Sodium Chloride Flush 3 ML SYRINGE IVFLUSH (08:55)
--- NOTE | 2022-11-06 09:46 | P.DS_ITS ---
DS: Providers Provider Date of Service: 11/06/22 Date of admission: 11/04/22 21:30 Primary care physician: Unknown Physician Consults: 11/04/22 21:30 Consult to Gastroenterology Routine Consulting Provider: Gisel Recinos Reason for consultation: GI bleed DS: Diagnosis Discharge Diagnosis (1) Acute lower gastrointestinal bleeding: Status: Acute DS: Summary Hospital Course Hospital Course: Attending physician on admission: Anika Kimbrough Chief Complaint: Bright red blood per rectum Pt is a 52-year-old transgender male to female with a PMH significant for asthma, alcohol abuse, depression, and anxiety?who presents to the ED with?bright red blood per rectum and diarrhea since yesterday. Today bleeding and diarrhea worsened and this evening pt experienced painful cramping, 4+ ep isodes in a 1-2 hour span, and became lightheaded and dizzy after episodes. Decided to come to the ED for further evaluation. Of note, pt has a long history of heavy alcohol use, and states she used to experience similar symptoms while drinking. Has been diagnosed with internal and external hemorroids. Pt is currently staying in [facility] and has been sober for six months. Pt has been feeling fatigued, tired, and had some nausea the past two days, but denies fever, chills, and vomiting. Occasional headache. Denies chest pain/pressure, palpitations. No SOB. In the ED patient was afebrile and normotensive. Labs were significant for H&H is 13.7/39.2 (slightly below baseline), creatinine slightly elevated at 1.24.? Stool positive for occult blood. CT of abdomen/pelvis, pending. The ED talked to GI who advised to admit the pt and they will see them in the morning. Pt will be admitted to the hospital for evaluation and further workup of acute GI bleed. :Hospital coursThe patient had no bleeding in the hospital; serial H/H was unchanged. He had EGD and Colonoscopy by Dr. Recinos on 11/06 with the following finding and recommendations: inflamed internal hemorrhoids. mild gastritis?recommendations: low dose PPI for gastritis, Preparation H, and Sitz bath for hemorrhoid. Final diagnoses: Rectal bleed Mild gastritis Inflamed internal hemorrhoid Time Spent with Patient Time attestation: Total time managing care of this patient today ____ minutes. Discharge coordination time: Greater than 30 minutes Quality: Safe Use of Opioids Does Pt have an Active Cancer Diagnosis on the Problem List?: No Quality: Stroke Does the patient have a stroke diagnosis?: No Physical Exam Vital Signs: Vital Signs: Last Vital Signs Temp 97.8 F 11/06/22 07:15 Pulse 62 11/06/22 07:15 Resp 20 11/06/22 07:15 BP 109/55 L 11/06/22 07:15 Pulse Ox 96 11/06/22 07:15 O2 Del Method Room Air 11/06/22 07:15 BMI result Body Mass Index 27.1 DS: Data Data Completed and Pending Completed studies during hospitalization [Text1]: Procedures Detoxification Services for Substance Abuse Treatment (09/06/21) Labs on day of discharge: Laboratory Results - last 24 hr 11/06/22 08:06 WBC 5.6 RBC 4.46 L Hgb 13.4 L Hct 39.2 L MCV 87.9 MCH 30.0 MCHC 34.2 RDW 13.4 Plt Count 206 MPV 9.1 L Absolute Nucleated RBC 0.000 Nucleated RBC % (auto) 0.0 Discharge Plan Discharge Anticipated Discharge Date/Time: 11/06/22 13:07 Patient Disposition: Home, Self-Care Discharge Diagnosis: Lower GI bleeding Referrals: Physician,Unknown J [Primary Care Provider] - 1 Week Discharge Medications: New omeprazole magnesium [Prilosec OTC] 20 mg tablet,delayed release (DR/EC) 20 mg PO DAILY Qty: 30 0RF Preparation H 0.25-14-74.9 % ointment 1 appl [place] BID Qty: 57 0RF Rx Instructions: apply to hemorrhoid Continued naltrexone 50 mg tablet 1 tab PO DAILY citalopram 20 mg tablet 1 tab PO DAILY ascorbic acid (vitamin C) [Vitamin C] 500 mg tablet 1 tab PO BID albuterol sulfate [ProAir HFA] 90 mcg/actuation HFA aerosol inhaler 2 puff PO Q4-6H PRN (Reason: Wheezing) spironolactone 25 mg tablet 25 mg PO BID estradiol 0.1 mg/24 hr patch weekly 2 patch topical QWEEK finasteride 1 mg tablet 1 mg PO DAILY Discharge Orders: Discharge Order (Routine); Ordered 11/06/22 Ordered By: Ángel Gannon Diet: Advance to usual diet Activity on Discharge: As tolerated Stand Alone Forms: Patient Portal Discharge page Care Plan Goals: full recovery from rectal bleeding Health Concerns: gastritis hemorrhoids Plan of Treatment: take prilosec for gastirits For hemorroid: Use preparation H as directed and use Sitz bath A sitz bath is a warm water bath that soothes the area around the anus and genitals. It is used to relieve pain and itching, and to promote healing of the perineal area. 1. Fill a bathtub or sitz bath with 3 to 4 inches of warm water. Do not use water that is too hot. 2. Add a cup of Epsom salt to the water, which will help to soothe the skin and reduce inflammation. 3. Sit in the bathtub or sitz bath for 10 to 15 minutes. 4. After your sitz bath, gently pat the area dry with a clean towel. Do not rub the area, as this can irritate the skin. 5. Apply a light moisturizer to the perineal area to help keep the skin hydrated.6. Repeat the sitz bath up to three times a day, or as directed by your doctor. Follow up with your primary care doctor in a week Assessment: as above
--- NOTE | 2022-11-06 10:16 | MHC.SHP ---
Pre-Procedural Eval Section A Date of Service: 11/06/22 The patient is an INPATIENT: Yes The History & Physical has been completed within 30 days and I have reviewed it.: Yes Section B Chief Complaint: GI Bleed Allergies: Allergies Allergy/AdvReac Type Severity Reaction Status Date / Time aripiprazole [From ABILIFY] Allergy Unknown HTN Verified 11/18/21 15:05 cefaclor [From CECLOR] Allergy Unknown HIVES, rash Verified 11/18/21 15:05 Cephalosporins Allergy Unknown RASH Verified 11/18/21 15:05 Plan Diagnosis/Plan: Unchanged I have reviewed the history and physical and performed a pertinent physical examination on my patient. No changes have occurred unless specified. Time Spent With Patient Time: Total time managing care of this patient today ____ minutes.
--- NOTE | 2022-11-06 10:21 | HO.ANESPROP2 ---
HPI - Anesthesia Eval Consult details Narrative: Fatigue, rectal bleeding PMFSH Active Problems Active Problems: All Active Problems (Updated 11/04/22 @ 21:15 by BEBO Angel) Acute lower gastrointestinal bleeding (Acute) Laceration of left ring finger (Acute) Alcohol withdrawal syndrome (Acute) Hypomagnesemia (Acute) Past Medical History Medical History (Updated 11/06/22 @ 10:22 by Gio Kim MD) Alcohol abuse Asthma Depression Family History Family history of problems with anesthesia: No Surgical History History of Problems with Anesthesia: No Social History Social History Household Members: Other Household Members Other:: lives at sober house Housing: Other Do you presently have visiting nurse or other home services: No Alcohol intake: former Patient Tobacco Use Status: Never used Tobacco Substance Use Type: Marijuana service: No Current occupational status: unemployed Current occupation: Right handed. Meds Allergies Allergy/AdvReac Type Severity Reaction Status Date / Time aripiprazole [From ABILIFY] Allergy Unknown HTN Verified 11/18/21 15:05 cefaclor [From CECLOR] Allergy Unknown HIVES, rash Verified 11/18/21 15:05 Cephalosporins Allergy Unknown RASH Verified 11/18/21 15:05 Active Medications: Current Medications Acetaminophen (Acetaminophen 325 Mg Tablet) 650 mg PO Q6H PRN PRN Reason: Pain, Mild (Pain Scale 1-3) Albuterol Sulfate (Albuterol Sulfate 90 Mcg 8 Gm Inhaler) 2 puff INHALE Q4H PRN PRN Reason: Wheezing Ascorbic Acid (Ascorbic Acid 500 Mg Tablet) 500 mg PO BID [facility] Last Admin: 11/06/22 08:53 Dose: 500 mg Escitalopram Oxalate (Escitalopram Oxalate 10 Mg Tablet) 10 mg PO DAILY [facility] Last Admin: 11/06/22 08:53 Dose: 10 mg Melatonin (Melatonin 3 Mg Tablet) 6 mg PO BEDTIME PRN PRN Reason: Insomnia Naltrexone HCl (Naltrexone Hcl 50 Mg Tablet) 50 mg PO DAILY [facility] Last Admin: 11/06/22 08:55 Dose: Not Given (Estradiol 0.1 Mg/24 (Hr Patch Weekly)) 2 patch TOPICAL Q7D [facility] Last Admin: 11/05/22 16:56 Dose: Not Given (Finasteride 1 Mg (Tablet)) 1 mg PO DAILY [facility] Last Admin: 11/06/22 08:53 Dose: 1 mg Ondansetron HCl (Ondansetron Hcl 4 Mg/2 Ml Vial) 4 mg IVPUSH Q8H PRN PRN Reason: Nausea and Vomiting Pharmacy Consult (Consult Rx Perform Med Rec) 1 each MISCELLANE ONCE PRN PRN Reason: Consult order Sodium Chloride (0.9 % Sodium Chloride Flush 3 Ml Syringe) 3 ml IVFLUSH QSHIFT [facility] Last Admin: 11/06/22 08:55 Dose: 3 ml Home Medications Medication Instructions Recorded Confirmed Last Taken Type albuterol sulfate 90 mcg/actuation 2 puff PO Q4-6H PRN Wheezing 12/15/21 11/04/22 Unknown History aerosol inhaler (ProAir HFA) ascorbic acid (vitamin C) 500 mg 1 tab PO BID 12/15/21 11/04/22 Unknown History tablet (Vitamin C) citalopram 20 mg tablet 1 tab PO DAILY 12/15/21 11/04/22 Unknown History naltrexone 50 mg tablet 1 tab PO DAILY 12/15/21 11/04/22 Unknown History estradiol 0.1 mg/24 hr weekly 2 patch topical QWEEK 11/04/22 11/04/22 Unknown History transdermal patch finasteride 1 mg tablet 1 mg PO DAILY 11/04/22 11/04/22 Unknown History spironolactone 25 mg tablet 25 mg PO BID 11/04/22 11/04/22 Unknown History Exam Exam Date and Time: November 06, 2022 1021 Height,Weight and Vital Signs: Height 6 ft Weight 90.718 kg Last Vital Signs Temp 97.8 F 11/06/22 07:15 Pulse 62 11/06/22 07:15 Resp 20 11/06/22 07:15 BP 109/55 L 11/06/22 07:15 Pulse Ox 96 11/06/22 07:15 O2 Del Method Room Air 11/06/22 07:15 Pertinent Lab Results Pertinent Lab Results: Laboratory Tests 11/04/22 11/04/22 11/04/22 20:44 20:44 21:23 WBC 7.3 RBC 4.51 L Hgb 13.7 L Hct 39.2 L MCV 86.9 MCH 30.4 MCHC 34.9 RDW 13.6 Plt Count 239 D MPV 9.3 L Immature Gran % (Auto) 0.4 Neut % (Auto) 64.2 Lymph % (Auto) 24.5 [place] % (Auto) 8.6 Eos % (Auto) 1.5 Baso % (Auto) 0.8 Lymph # (Auto) 1.8 [place] # (Auto) 0.6 Eos # (Auto) 0.1 Baso # (Auto) 0.1 Abs Immat Gran (auto) 0.03 Absolute Neuts (auto) 4.7 Absolute Nucleated RBC 0.000 Nucleated RBC % (auto) 0.0 Sodium 140 Potassium 4.2 Chloride 109 H Carbon Dioxide 23 Anion Gap 12 BUN 17 H Creatinine 1.24 Estim Creat Clear Calc 78.2 Estimated GFR > 60 Random Glucose 96 Calcium 9.0 Magnesium 1.8 Total Bilirubin 0.8 AST 22 ALT 25 Alkaline Phosphatase 73 Total Protein 6.1 L Albumin 3.9 Urine Color Urine Appearance Urine pH Ur Specific [place] Urine Protein Urine Glucose (UA) Urine Ketones Urine Blood Urine Nitrite Ur Leukocyte Esterase Stool Occult Blood POSITIVE COVID-19 (JAZZY) COVID-[employer] Blood Type Antibody Screen 11/04/22 11/04/22 11/04/22 21:42 22:13 23:50 WBC RBC Hgb Hct MCV MCH MCHC RDW Plt Count MPV Immature Gran % (Auto) Neut % (Auto) Lymph % (Auto) [place] % (Auto) Eos % (Auto) Baso % (Auto) Lymph # (Auto) [place] # (Auto) Eos # (Auto) Baso # (Auto) Abs Immat Gran (auto) Absolute Neuts (auto) Absolute Nucleated RBC Nucleated RBC % (auto) Sodium Potassium Chloride Carbon Dioxide Anion Gap BUN Creatinine Estim Creat Clear Calc Estimated GFR Random Glucose Calcium Magnesium Total Bilirubin AST ALT Alkaline Phosphatase Total Protein Albumin Urine Color Yellow Urine Appearance Clear Urine pH 5.5 Ur Specific [place] >= 1.030 H Urine Protein Negative Urine Glucose (UA) Negative Urine Ketones Negative Urine Blood Negative Urine Nitrite Negative Ur Leukocyte Esterase Negative Stool Occult Blood COVID-19 (JAZZY) Negative [employer] See Note Blood Type O Positive Antibody Screen NEGATIVE 11/05/22 11/05/22 11/05/22 00:42 06:08 06:08 WBC 7.8 6.8 RBC 4.16 L 4.26 L Hgb 12.6 L 13.0 L Hct 36.2 L 37.7 L MCV 87.0 88.5 MCH 30.3 30.5 MCHC 34.8 34.5 RDW 13.6 13.4 Plt Count 206 197 MPV 9.3 L 9.6 Immature Gran % (Auto) 0.1 0.3 Neut % (Auto) 62.9 59.1 Lymph % (Auto) 27.4 28.8 [place] % (Auto) 7.1 8.3 Eos % (Auto) 1.9 2.5 Baso % (Auto) 0.6 1.0 Lymph # (Auto) 2.1 2.0 [place] # (Auto) 0.6 0.6 Eos # (Auto) 0.2 0.2 Baso # (Auto) 0.1 0.1 Abs Immat Gran (auto) 0.01 0.02 Absolute Neuts (auto) 4.9 4.0 Absolute Nucleated RBC 0.000 0.000 Nucleated RBC % (auto) 0.0 0.0 Sodium 140 Potassium 4.1 Chloride 109 H Carbon Dioxide 24 Anion Gap 11 L BUN 16 Creatinine 1.03 Estim Creat Clear Calc 94.1 Estimated GFR > 60 Random Glucose 90 Calcium 8.3 L D Magnesium Total Bilirubin AST ALT Alkaline Phosphatase Total Protein Albumin Urine Color Urine Appearance Urine pH Ur Specific [place] Urine Protein Urine Glucose (UA) Urine Ketones Urine Blood Urine Nitrite Ur Leukocyte Esterase Stool Occult Blood COVID-19 (JAZZY) COVID-19 [employer] Blood Type Antibody Screen 11/06/22 08:06 WBC 5.6 RBC 4.46 L Hgb 13.4 L Hct 39.2 L MCV 87.9 MCH 30.0 MCHC 34.2 RDW 13.4 Plt Count 206 MPV 9.1 L Immature Gran % (Auto) Neut % (Auto) Lymph % (Auto) [place] % (Auto) Eos % (Auto) Baso % (Auto) Lymph # (Auto) [place] # (Auto) Eos # (Auto) Baso # (Auto) Abs Immat Gran (auto) Absolute Neuts (auto) Absolute Nucleated RBC 0.000 Nucleated RBC % (auto) 0.0 Sodium Potassium Chloride Carbon Dioxide Anion Gap BUN Creatinine Estim Creat Clear Calc Estimated GFR Random Glucose Calcium Magnesium Total Bilirubin AST ALT Alkaline Phosphatase Total Protein Albumin Urine Color Urine Appearance Urine pH Ur Specific [place] Urine Protein Urine Glucose (UA) Urine Ketones Urine Blood Urine Nitrite Ur Leukocyte Esterase Stool Occult Blood COVID-19 (JAZZY) COVID-19 [employer] Blood Type Antibody Screen Airway Mallampati Class: II TM Dist: >3cm Loose/Missing/Broken Teeth: No Heart: RRR Lungs: CTA Assessment and Plan Assessment Anesthesia Assessment: Anesthesia Plan Discussed and Chart Reviewed Final Anesthetic Review Family History of Problems with Anesthesia: No History of Problems with Anesthesia: No NPO: Yes ASA Class: II Final Preanesthetic Review: No Changes in Pt Med Stat, Meds/Allgs Chart Reviewed, Consent Obtained/Reviewed and Anes Risks/Benef Reviewed Patient Risk: Intermediate Procedure Risk: Low Anesthetic Plan Anesthetic Plan: MAC: Disposition: Standard PACU
--- NOTE | 2022-11-06 11:32 | W.PM.OPN ---
Operative Note Operative Note Date of Service: 11/06/22 Narrative: Operative Information Procedure Description: EGD, Colonoscopy Indication: anemia, bloody stools and dark stools Anesthesia: MAC FLEXIBLE TRANSORAL UPPER GASTROINTESTINAL ENDOSCOPY AND COLONOSCOPY PROCEDURE NOTE UPPER ENDOSCOPY Consent: Indications for the procedure and potential complications of bleeding, perforation, reaction to medications and missed diagnosis were discussed with the patient and informed consent was obtained. Instrument: Olympus GIF H 190 J mid size upper endoscope Monitoring: Vital signs and clinical assessment, continuous EKG monitoring, Pulse oximetry, Carbon Dioxide monitoring and blood pressure monitoring were done throughout the procedure. Procedure: The patient was placed in the left lateral decubitis position and pre-procedure medications were administered and a bite block was placed. The endoscope was inserted into the mouth and advanced under direct vision to the third part of duodenum. A careful inspection was made as the upper endoscope was withdrawn including a retroflexed examination of the proximal stomach; Findings and interventions are described below. Findings: Larynx:normal Esophagus: GE junction at 40 cm, diaphragm hiatus at 40 cm, mild esophagitis with few patchy areas of salmon pink tissue, bx taken from GEJ and distal esophagus, Stomach: Mild gastritis. Biopsies were obtained. Grade 2 flap valve on retroflexed examination of the cardia. Duodenum: Mild bulbar duodenitis Intervention: Biopsies as noted above COLONOSCOPY Instrument: Olympus variable stiffness ADULT scope 190L Colonoscopy Monitoring: Vital signs and clinical assessment, continuous EKG monitoring, Pulse oximetry, Carbon Dioxide monitoring and blood pressure monitoring were done throughout the procedure. Colon withdrawal time was 8 minutes. Procedure: The patient was placed in the left lateral decubitis position and pre-procedure medications were administered. After a digital rectal examination of the ano-rectum, the video colonoscope was inserted into the rectum and advanced through the colon to the cecum/TI. The colonoscope was slowly withdrawn in a retrograde panoramic fashion and the colon mucosa was carefully examined including a retroflexed view of the rectum. Findings and interventions are described below. Procedure Difficulty:easy Findings: Terminal Ileum-normal Right sided retroflexion- normal Cecum:normal Ascending Colon: normal Transverse Colon -normal Descending Colon:normal Sigmoid Colon: normal Rectum: Retroflexion with medium sized inflammed internal hemorrhoids, grade II Anorectum - internal hemorrhoids seen on anterior view Colon preparation: [place] Bowel Preparation Scale Right colon; 2 Transverse colon: 3 Left colon; 3 (0 = Unprepared colon segment with mucosa not seen due to solid stool that cannot be cleared. 1 = Portion of mucosa of the colon segment seen, but other areas of the colon segment not well seen due to staining, residual stool and/or opaque liquid. 2 = Minor amount of residual staining, small fragments of stool and/or opaque liquid, but mucosa of colon segment seen well. 3 = Entire mucosa of colon segment seen well with no residual staining, small fragments of stool or opaque liquid) Impression and Post Procedure Diagnosis: Endoscopy Findings: gastritis duodenitis esophagitis possible short segment barretts Colonoscopy Findings: inflammed internal hemorrhoids Plan: Await Pathology results Repeat Colonoscopy in 10 years or earlier if clinically indicated High fiber diet leaflet avoid straining at stool, epsom salts and sitz bath, anusol supps or cream if h pylori pos treat, can be d/c'ed on low dose PPI Above findings were reviewed with the patient and relevant handouts were provided if indicated.
[2022-11-06 11:43] VITALS: BP 116/74; PULSE 84; RESP 20; TEMP 36.7; O2SAT 96
[2022-11-06 12:48] VITALS: BP 91/50; PULSE 69; RESP 11; TEMP 36.4; O2SAT 97
[2022-11-06 13:03] VITALS: BP 111/69; PULSE 67; RESP 14; TEMP 36.5; O2SAT 98
--- NOTE | 2022-11-06 14:30 | MHC.CM.PN ---
PT WILL DC HOME TODAY WITH NO SERVICES FAMILY TO TRANSPORT
== END 2022-11-06 15:00 | disposition home or self-care (01) | DRG 378 ==
LOC: HO.ED 21:35 → HO.EDOVER 21:38 → HO.IMC 22:58
PROVIDERS: Internal Medicine Gastroenterology; Physician Assistant; Physician Assistant Medical; Admitting Provider Student in an Organized Health Care Education/Training Program; Emergency Provider Emergency Medicine; Visit Provider Internal Medicine
PROC: 0DJ08ZZ Inspection of Upper Intestinal Tract, Via Natural or Artificial Opening Endoscopic (ICD-10-PCS; CPT 43235; principal; 2022-11-06 09:45)
PROC: 0DJD8ZZ Inspection of Lower Intestinal Tract, Via Natural or Artificial Opening Endoscopic (ICD-10-PCS; CPT 45378; 2022-11-06 09:45)
DX: K29.71 Gastritis, unspecified, with bleeding (principal); D62 Acute posthemorrhagic anemia; J45.20 Mild intermittent asthma, uncomplicated; K20.91 Esophagitis, unspecified with bleeding; K29.81 Duodenitis with bleeding; F64.0 Transsexualism; K22.70 Barrett's esophagus without dysplasia; K64.1 Second degree hemorrhoids; F32.A Depression, unspecified; F41.9 Anxiety disorder, unspecified; F10.10 Alcohol abuse, uncomplicated; Z20.822 Contact with and (suspected) exposure to COVID-19; Z88.1 Allergy status to other antibiotic agents; Z88.8 Allergy status to other drugs, medicaments and biological substances; Z79.899 Other long term (current) drug therapy
CPT/HCPCS: 43239; 45378; 36415; 74178; 80048; 80053; 81003; 82272; 83735; 85025; 85027; 86850; 86900; 86901; 87635; 88305; 88342; 99222; 99285; J3010; Q9967

== ENCOUNTER 2022-12-03 12:05 | Emergency (ER) | payer OTHER, SELFPAY ==
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
[2022-12-03 12:11] VITALS: BP 124/87; PULSE 79; RESP 16; TEMP 36.6; O2SAT 96; BMI 28.8
[2022-12-03 12:13] VITALS: BP 118/82; PULSE 81; O2SAT 97
--- NOTE | 2022-12-03 12:16 | PC.NURSE ---
Alert and oriented, resp even and unlabored. Pt reports pain all over, especially in left knee and jaw. Reports injury to left pinky finger. Collared by EMS.
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
[2022-12-03] MEDS: Ketorolac Tromethamine 30 MG/ML VIAL IM (15:04)
--- NOTE | 2022-12-03 15:06 | PC.NURSE ---
Provider cleared pt of c-collar. Pt medicated per the MAR for pain, off to xray at this time
[2022-12-03 15:53] VITALS: BP 116/71; PULSE 64; RESP 16; TEMP 36.5; O2SAT 96
[2022-12-03] MEDS: Lidocaine HCl 1 % MPF 2 ML VIAL 4 ML INFILTRATI (16:52)
[2022-12-03 17:45] VITALS: BP 115/71; PULSE 72; RESP 16; TEMP 36.4; O2SAT 96
--- NOTE | 2022-12-03 17:57 | PC.NURSE ---
Provider continues to suture finger at bedside at this time
[2022-12-03] MEDS: Diphth,Pertus(ACell),Tet Adult 0.5 ML SYRINGE IM (18:19)
== END 2022-12-03 18:36 | disposition home or self-care (01) ==
PROVIDERS: Emergency Provider Emergency Medicine
DX: S61.215A Laceration without foreign body of left ring finger without damage to nail, initial encounter (principal); S80.212A Abrasion, left knee, initial encounter; S50.312A Abrasion of left elbow, initial encounter; V13.4XXA Pedal cycle driver injured in collision with car, pick-up truck or van in traffic accident, initial encounter; Y93.55 Activity, bike riding; Y92.414 Local residential or business street as the place of occurrence of the external cause; Y99.9 Unspecified external cause status
CPT/HCPCS: 12001; 70450; 70486; 72072; 72100; 72125; 73080; 73140; 73502; 73560; 90471; 90715; 96372; 99284; J1885

== ENCOUNTER 2023-06-22 14:25 | Outpatient (REF) | payer OTHER, SELFPAY ==
[2023-06-22 16:24] LABS: Alanine Aminotransferase 20 U/L (0-40); Albumin Level 4.1 g/dL (3.5-5.0); Alkaline Phosphatase 88 U/L (39-117); Anion Gap 11 (12-20); Aspartate Amino Transferase 18 U/L (5-37); Bilirubin Total 0.5 mg/dL (0.0-1.0); Blood Urea Nitrogen 10 mg/dL (9-16); Calcium 9.2 mg/dL (8.4-10.2); Carbon Dioxide 26 mmol/L (22-29); Chloride 103 mmol/L (96-108); Cholesterol 255 mg/dL (<200); Estimated Glomerular Filt Rate > 60; Glucose Random 103 mg/dL (60-115); Sodium 136 mmol/L (135-145); Total Protein 7.1 g/dL (6.5-8.0)
[2023-06-26 01:44] LABS: Estradiol Ultra Sensitive 107 pg/mL (< OR = 29)
[2023-06-26 13:58] LABS: Testosterone, Total 50 ng/dL (250-1100)
== END 2023-06-22 14:26 | disposition home or self-care (01) ==
LOC: HO.LAB 14:25
PROVIDERS: PCP Nurse Practitioner Family; Visit Provider Physician Assistant
DX: E78.5 Hyperlipidemia, unspecified (principal); F64.9 Gender identity disorder, unspecified
CPT/HCPCS: 36415; 80053; 82465; 82670; 84403

== ENCOUNTER 2024-01-30 14:41 | Emergency (ER) | payer OTHER, SELFPAY ==
[2024-01-30 15:41] VITALS: BP 145/105; PULSE 122; RESP 18; TEMP 36.3; O2SAT 95; BMI 26.3
--- NOTE | 2024-01-30 15:41 | ED.GENADULT ---
HPI - General Adult General Chief complaint: ETOH/Substance Use Stated complaint: dehydrated Time Seen by Provider: 01/30/24 21:34 Source: patient Mode of arrival: ambulatory Limitations: no limitations History of Present Illness ED Provider: Dr. Iggy Carolina HPI narrative: 53-year-old trans female uses the pronouns she and he, and the name Colton with a history of depression, alcohol use disorder, alcohol withdrawal, asthma, GI bleed who presents emergency department for evaluation of depression with passive suicidal ideation. The patient states that she has been more depressed over the last week. She states that he has had difficulty sleeping in his been having sweats. She has not been eating well. Patient has a longstanding history of alcohol use disorder and states that she has been drinking 8-10 nips of 100 proof peppermint schnapps daily. She states that she wakes up in the morning and feels like she is withdrawing and has to drink several shots of alcohol prior to going to work. She states he is depressed and does not have a plan to kill herself but she feels like he does not want to live and she has been telling this to his mother, Mickie was here in the emergency department with her. The patient has been admitted [facility] [place] for depression alcohol detox. She also states he spent 1 year and the [employer] and states sober for that period of time, however, since she was released in June 2023 , she has been drinking since that time. The patient is getting trans care at [facility] but h she e states that she has not been getting counseling. Related Data Home Medications ?Medication ?Instructions ?Recorded ?Confirmed albuterol sulfate 90 mcg/actuation 2 puff PO Q4-6H PRN Wheezing 12/15/21 11/04/22 aerosol inhaler (ProAir HFA) ascorbic acid (vitamin C) 500 mg 1 tab PO BID 12/15/21 11/04/22 tablet (Vitamin C) citalopram 20 mg tablet 1 tab PO DAILY 12/15/21 11/04/22 naltrexone 50 mg tablet 1 tab PO DAILY 12/15/21 11/04/22 estradiol 0.1 mg/24 hr weekly 2 patch topical QWEEK 11/04/22 11/04/22 transdermal patch finasteride 1 mg tablet 1 mg PO DAILY 11/04/22 11/04/22 spironolactone 25 mg tablet 25 mg PO BID 11/04/22 11/04/22 Previous Rx's ?Medication ?Instructions ?Recorded omeprazole magnesium 20 mg 20 mg PO DAILY #30 tabs 11/06/22 tablet,delayed release (Prilosec OTC) phenylephrine 0.25 %-mineral oil 1 appl CA BID #57 grams 11/06/22 14 %-petrolatm 74.9 % rectal ointment (Preparation H) acetaminophen 500 mg capsule 500 mg PO Q6H #20 caps 12/03/22 cephalexin 500 mg capsule 500 mg PO Q6H 7 days #28 caps 12/03/22 cyclobenzaprine 5 mg tablet 10 mg (2 x 5 mg) PO BEDTIME PRN 12/03/22 muscle spasm #10 tabs Allergies Allergy/AdvReac Type Severity Reaction Status Date / Time aripiprazole [From ABILIFY] Allergy Unknown HTN Verified 01/30/24 15:46 cefaclor [From CECLOR] Allergy Unknown HIVES, rash Verified 01/30/24 15:46 Cephalosporins Allergy Unknown RASH Verified 01/30/24 15:46 Review of Systems Review of Systems: Yes all other systems are reviewed and are negative [facility] Past Medical History [facility] Narrative: Social history: She is drinking alcohol daily, 8-10 nips of 100 proof peppermint schnapps, she does smoke marijuana daily. Medical History (Updated 01/31/24 @ 08:41 by Sugar Bach DO) Depression Alcohol abuse Asthma Social History Social History Household Members: Other Household Members Other:: lives at sober house Housing: Other Do you presently have visiting nurse or other home services: No Alcohol intake: former Comment: Pt refused bed alarm. States he will ring for assistance. Urinal at bedside Patient Tobacco Use Status: Never used Tobacco Substance Use Type: Marijuana Advance Directives: No Advance Directives Information Provided: No Do you have a plan to hurt others: No Plan service: No Current occupational status: unemployed Current occupation: Right handed. Physical Exam ED Vital Signs: Vital Signs - 24 hr 01/30/24 15:41 01/30/24 22:00 01/31/24 05:41 Temperature 97.4 F 98.8 F Pulse Rate 122 H 95 95 Respiratory Rate 18 16 16 Blood Pressure 145/105 H 138/92 H 151/89 H Pulse Oximetry 95 99 96 Oxygen Delivery Method Room Air Room Air Room Air BMI result Body Mass Index 26.3 Vital signs revealed an increased heart rate of 122, increased blood pressure 145/105 Exam: General: Awake, alert in no distress Head: Normocephalic, atraumatic EENT: PERRL, Lids normal, sclera normal, conjunctiva normal, nose normal , ears normal, throat without erythema or exudates Neck: Supple, no adenopathy Lung: breath sounds symmetric, no wheezing, rales or rhonchi Chest: symmetric movement, nontender Heart: regular rate and rhythm, normal S1, S2 no murmurs or rubs Abdomen: soft, non-tender, nondistended, normal bowel sounds Back: no vertebral tenderness, no CVAT Extremities: no deformities, moves all extremities symmetrically Neuro: Awake, alert, oriented, normal speech, cranial nerves intact, moves all extremities symmetrically Psych: Pleasant, cooperative Course Course Course Narrative: RME, this is a rapid medical exam performed by Chuy Mason please refer to primary provider for complete H&P- 53 year old male who identifies as female presents for evaluation of weakness and vomiting. Reports a history of agustín and depression. Was drinking about 10 nips daily and last drink was this morning. No suicidal ideation. Plan for labs and likely addiction medicine vs care team consult Reevaluation(s) Reevaluation #1: observation care revealed that the patient does meet psychiatric/medical necessity for hospitalization. final disposition discussed with the patient. The patient completed observation care at 840am. Total time in observation care was 8 hours. cleared by CARE team Medications Administered Discontinued Medications Generic Name Dose Route Start Last Admin Trade Name Freq PRN Reason Stop Dose Admin Sodium Chloride 1,000 mls @ 999 mls/hr 01/30/24 22:10 01/30/24 23:43 Ns IV 01/30/24 23:10 Infused .Q1H1M STA Infusion Magnesium Sulfate 2 gm in 50 mls @ 25 mls/hr 01/30/24 22:10 01/31/24 00:45 Magnesium Sulfate/H2o IV 01/31/24 00:09 Infused ONCE ONE Infusion Lorazepam 2 mg 01/30/24 15:48 01/30/24 15:51 Lorazepam 1 Mg Tablet PO 01/30/24 15:49 2 mg ONCE ONE Administration Lorazepam 2 mg 01/30/24 22:10 01/30/24 22:45 Lorazepam 2 Mg/Ml Vial IVPUSH 01/30/24 22:11 2 mg STAT STA Administration Ondansetron HCl 4 mg 01/30/24 15:48 01/30/24 15:51 Ondansetron Odt 4 Mg Tab.Rapdis TRANSLINGU 01/30/24 15:49 4 mg ONCE ONE Administration Ondansetron HCl 4 mg 01/30/24 22:10 01/30/24 22:45 Ondansetron Hcl 4 Mg/2 Ml Vial IVPUSH 01/30/24 22:11 4 mg ONCE ONE Administration Potassium Chloride 40 meq 01/30/24 22:10 01/30/24 22:45 Potassium Chloride Packet 20 Meq Packet PO 01/30/24 22:11 40 meq ONCE ONE Administration Medical Decision Making Medical Decision Making MDM Narrative: 53-year-old trans female uses the pronouns she and he, and the name Colton with a history of depression, alcohol use disorder, alcohol withdrawal, asthma, GI bleed who presents emergency department for evaluation of depression with passive suicidal ideation. Patient has been drinking 8-10 nips of 100% prove peppermint schnapps daily, she wakes up daily and has to drink several shots of alcohol prior to going to works and she feels like she is withdrawing. She has been depressed for the past weakness had difficulty sleeping and eating. Patient has been able to go to work. She has been making passive suicidal statements to her mother who was concerned and brought the patient to the emergency department today for evaluation. Patient states she has been drinking heavily for 35 years and did have at least 1 year of sobriety when she was at a sober house but was released in June of 2023. Patient is getting trans care at [facility] but is not getting counseling for depression. She states she is compliant with her Celexa. Physical examination did reveal an elevated heart rate and elevated blood pressure otherwise her exam was unremarkable. Differential diagnosis: ?Includes but is not limited to depression, anxiety, suicidal ideation, alcohol use disorder, alcohol withdrawal, electrolyte abnormalities, anemia Following evaluation was ordered: CBC, CMP, magnesium, lipase, urine drug screen, ethanol level, CIWA scale q.4 hours Patient was initially treated with the following: IV insert, Ativan 2 mg IV, normal saline x1 L, magnesium 2 g IV, potassium chloride 40 mEq orally Course: 00:20 Start physician observation: My interpretation patient's laboratory evaluation is as follows: WBC elevated 13,600. Sodium low 131. Potassium low 3.0. CO2 low 15. Magnesium low 1.4. AST elevated 40. Alk-phos elevated 137. Glucose elevated 208. Lipase normal. Alcohol level was detectable at 26. Urine tox screen was positive for THC. Patient's electrolyte abnormalities will be repleted, patient is medically cleared for crisis evaluation for depression, passive suicidal ideation and alcohol use disorder. Patient will remain in the emergency department until disposition can be determined or until patient's symptoms improve over time. Admission/Observation Consideration of admission/observation: Escalation of care including admission/observation considered Lab Data 01/30/24 16:32 01/30/24 16:32 Labs: Lab Results 01/30/24 01/30/24 Range/Units 16:32 21:49 WBC 13.6 H (4.8-10.8) X10*3/uL RBC 4.44 L (4.60-5.80) X10*6/uL Hgb 14.6 (14.0-18.0) g/dl Hct 40.5 L (42.0-52.0) % MCV 91.2 (80.0-98.0) fL MCH 32.9 (27.0-33.0) pg MCHC 36.0 (31.0-36.0) g/dl RDW 17.7 H (11.0-16.0) % Plt Count 388 D (160-400) X10*3/uL MPV 9.2 L (9.4-12.4) fL Immature Gran % (Auto) 0.4 (0.0-0.4) % Neut % (Auto) 86.3 H (45-73) % Lymph % (Auto) 9.8 L (20-40) % [place] % (Auto) 3.1 (2-11) % Eos % (Auto) 0.0 (0-4) % Baso % (Auto) 0.4 (0-2) % Lymph # (Auto) 1.3 (1.2-4.9) X10*3/uL [place] # (Auto) 0.4 (0.1-1.2) X10*3/uL Eos # (Auto) 0.0 (0.0-0.4) X10*3/uL Baso # (Auto) 0.1 (0.0-0.2) X10*3/uL Abs Immat Gran (auto) 0.06 H (0.00-0.03) X10*3/uL Absolute Neuts (auto) 11.8 H (2.0-8.3) x10*3/uL Absolute Nucleated RBC 0.000 (0.0-0.012) X10*3/uL Nucleated RBC % (auto) 0.0 (0.0-0.2) /100WBC Sodium 133 L (135-145) mmol/L Potassium 3.0 L (3.3-5.1) mmol/L Chloride 100 (96-108) mmol/L Carbon Dioxide 15 L (22-29) mmol/L Anion Gap 21 H (12-20) BUN 7 L (9-16) mg/dL Creatinine 1.04 (0.5-1.4) mg/dL Estim Creat Clear Calc 92.2 Estimated GFR > 60 Random Glucose 208 H (60-115) mg/dL Calcium 9.7 (8.4-10.2) mg/dL Magnesium 1.4 L* (1.6-2.6) mg/dL Total Bilirubin 1.1 H (0.0-1.0) mg/dL AST 40 H (5-37) U/L ALT 34 (0-40) U/L Alkaline Phosphatase 137 H (39-117) U/L Total Protein 7.5 (6.5-8.0) g/dL Albumin 4.4 (3.5-5.0) g/dL Lipase 31 (8-78) U/L Urine Opiates Screen Not Detected (Not Detect) Ur Buprenorphine Scrn Not Detected (Not Detect) ng/mL Ur Oxycodone Screen Not Detected (Not Detect) ng/mL Urine Methadone Screen Not Detected (Not Detect) ng/mL Urine Fentanyl Screen Not Detected (Not Detect) Ur Barbiturates Screen Not Detected (Not Detect) Ur Phencyclidine Scrn Not Detected (Not Detect) Ur Amphetamines Screen Not Detected (Not Detect) U Benzodiazepines Scrn Not Detected (Not Detect) Urine Cocaine Screen Not Detected (Not Detect) U Marijuana (THC) Screen POSITIVE H (Not Detect) Ethyl Alcohol 26 mg/dL Discharge Plan Discharge Clinical Impression: Alcohol use disorder, Hypomagnesemia, Acute hypokalemia Depression Qualifiers: Depression Type: unspecified Qualified Code(s): F32.A - Depression, unspecified Patient Disposition: Home, Self-Care Instructions: Abuse of Alcohol (ED), Depression (ED), Hypokalemia (ED), Hypomagnesemia (ED) Additional Instructions: please decrease your drinking follow up with your doctor we repleted your potassium and magnesium would recheck levels next wee follow up with CARE teams plan for therapy Prescriptions: No Action naltrexone 50 mg tablet 1 tab PO DAILY citalopram 20 mg tablet 1 tab PO DAILY ascorbic acid (vitamin C) [Vitamin C] 500 mg tablet 1 tab PO BID albuterol sulfate [ProAir HFA] 90 mcg/actuation HFA aerosol inhaler 2 puff PO Q4-6H PRN (Reason: Wheezing) spironolactone 25 mg tablet 25 mg PO BID estradiol 0.1 mg/24 hr patch weekly 2 patch topical QWEEK finasteride 1 mg tablet 1 mg PO DAILY omeprazole magnesium [Prilosec OTC] 20 mg tablet,delayed release (DR/EC) 20 mg PO DAILY Qty: 30 0RF Preparation H 0.25-14-74.9 % ointment 1 appl CA BID Qty: 57 0RF Rx Instructions: apply to hemorrhoid cephalexin 500 mg capsule 500 mg PO Q6H 7 Days Qty: 28 0RF cyclobenzaprine 5 mg tablet 10 mg PO BEDTIME PRN (Reason: muscle spasm) Qty: 10 0RF acetaminophen 500 mg capsule 500 mg PO Q6H Qty: 20 0RF Stand Alone Forms: Work/School Release Print Language: Choose Not To Answer
[2024-01-30] MEDS: Ondansetron ODT 4 MG TAB.RAPDIS TRANSLINGU (15:51)
[2024-01-30] MEDS: LORazepam 1 MG TABLET 2 MG PO (15:51)
[2024-01-30 16:37] LABS: MANUAL DIFF FLAG NO
[2024-01-30 16:59] LABS: Alanine Aminotransferase 34 U/L (0-40); Albumin Level 4.4 g/dL (3.5-5.0); Alkaline Phosphatase 137 U/L (39-117); Anion Gap 21 (12-20); Aspartate Amino Transferase 40 U/L (5-37); Bilirubin Total 1.1 mg/dL (0.0-1.0); Blood Urea Nitrogen 7 mg/dL (9-16); Calcium 9.7 mg/dL (8.4-10.2); Carbon Dioxide 15 mmol/L (22-29); Chloride 100 mmol/L (96-108); Creatinine Clr Calc Pharmacy 92.2; Estimated Glomerular Filt Rate > 60; Ethanol 26 mg/dL; Glucose Random 208 mg/dL (60-115); Lipase 31 U/L (8-78); Magnesium 1.4 mg/dL (1.6-2.6); Sodium 133 mmol/L (135-145); Total Protein 7.5 g/dL (6.5-8.0)
[2024-01-30 17:04] LABS: Basophils Absolute Auto 0.1 X10*3/uL (0.0-0.2); Basophils Percent Auto 0.4 % (0-2); Hematocrit 40.5 % (42.0-52.0); Hemoglobin 14.6 g/dl (14.0-18.0); Imm Gran Abs Auto 0.06 X10*3/uL (0.00-0.03); Imm Gran Pct Auto 0.4 % (0.0-0.4); Lymphocytes Absolute Auto 1.3 X10*3/uL (1.2-4.9); Lymphocytes Percent Auto 9.8 % (20-40); Mean Corpuscular Hemoglobin 32.9 pg (27.0-33.0); Mean Corpuscular Volume 91.2 fL (80.0-98.0); Mean Platelet Volume 9.2 fL (9.4-12.4); Monocytes Absolute Auto 0.4 X10*3/uL (0.1-1.2); Monocytes Percent Auto 3.1 % (2-11); Neutrophils Absolute Auto 11.8 x10*3/uL (2.0-8.3); Neutrophils Percent Auto 86.3 % (45-73); Platelet Count 388 X10*3/uL (160-400); Red Blood Count 4.44 X10*6/uL (4.60-5.80); Red Cell Distribution Width 17.7 % (11.0-16.0); White Blood Count 13.6 X10*3/uL (4.8-10.8)
[2024-01-30 22:00] VITALS: BP 138/92; PULSE 95; RESP 16; TEMP 37.1; O2SAT 99
[2024-01-30 22:15] LABS: Amphetamine Screen Urine Not Detected (Not Detect); Barbiturates, Urine Not Detected (Not Detect); Benzodiazepines Screen Urine Not Detected (Not Detect); Buprenorphine Scr Not Detected (Not Detect); Cannabinoid Screen Urine POSITIVE (Not Detect); Cocaine Screen Urine Not Detected (Not Detect); Fentanyl, urine Not Detected (Not Detect); Methadone Screen, Urine Not Detected (Not Detect); Opiate Screen Urine Not Detected (Not Detect); Oxycodone Screen Urine Not Detected (Not Detect); Phencyclidine Screen Urine Not Detected (Not Detect)
[2024-01-30] MEDS: 0.9 % Sodium Chloride 1,000 ML 999 ML IV (22:42)
[2024-01-30] MEDS: LORazepam 2 MG/ML VIAL IVPUSH (22:45)
[2024-01-30] MEDS: Magnesium Sulfate/H2O 2 GM/50 ML PIGGYBACK IV (22:45)
[2024-01-30] MEDS: ondansetron HCL 4 MG/2 ML VIAL IVPUSH (22:45)
[2024-01-30] MEDS: Potassium Chloride Packet 20 MEQ PACKET 40 MEQ PO (22:45)
[2024-01-31 05:41] VITALS: BP 151/89; PULSE 95; RESP 16; O2SAT 96
--- NOTE | 2024-01-31 08:17 | PC.NURSE ---
care team at bedside
[2024-01-31] MEDS: Diphenoxylate/Atrop 2.5/0.025 TABLET 1 TAB PO (08:53)
[2024-01-31 08:57] VITALS: BP 140/88; PULSE 90; RESP 18; TEMP 36.6; O2SAT 96
--- NOTE | 2024-01-31 15:12 | MHC.CARE ---
Patient has been referred to [facility], email sent and will follow-up tomorrow morning to confirm receipt.
== END 2024-01-31 08:58 | disposition home or self-care (01) ==
PROVIDERS: Physician Assistant; Emergency Provider Emergency Medicine Emergency Medical Services
DX: F32.A Depression, unspecified (principal); F10.90 Alcohol use, unspecified, uncomplicated; E87.6 Hypokalemia; E83.42 Hypomagnesemia; R45.851 Suicidal ideations; Z79.899 Other long term (current) drug therapy
CPT/HCPCS: 36415; 80053; 80307; 83690; 83735; 85025; 96361; 96365; 96375; 99284; J2060; J2405; J3475; S9485

== ENCOUNTER 2024-02-15 15:14 | Emergency (ER) | payer OTHER, SELFPAY ==
--- NOTE | 2024-02-15 15:18 | ED.GENADULT ---
HPI - General Adult General Chief complaint: Psychiatric Symptoms Stated complaint: Depressed Time Seen by Provider: 02/15/24 16:05 Source: patient Mode of arrival: ambulatory Limitations: no limitations History of Present Illness ED Provider: Dr. Holly Harris HPI narrative: Patient comes to the emergency room complaining of worsening depression and increased alcohol consumption. Patient states that for 2 years he has been transitioning from male to female. Over last few weeks, patient has been losing several friends. However, patient states what hurts him the most is that his best friend decided that he can not deal with this transition. Patient states that his coping mechanism is to drink alcohol. Patient denies SI or HI. Patient requesting a dual facility to get both depression and alcoholism Related Data Home Medications ?Medication ?Instructions ?Recorded ?Confirmed albuterol sulfate 90 mcg/actuation 2 puff PO Q4-6H PRN Wheezing 12/15/21 02/15/24 aerosol inhaler (ProAir HFA) citalopram 20 mg tablet 1 tab PO DAILY 12/15/21 02/15/24 spironolactone 25 mg tablet 25 mg PO BID 11/04/22 02/15/24 ascorbic acid (vitamin C) 500 mg 500 mg PO BID 02/15/24 02/15/24 tablet cholecalciferol (vitamin D3) 25 25 mcg PO DAILY 02/15/24 02/15/24 mcg (1,000 unit) tablet dutasteride 0.5 mg capsule 0.5 mg PO DAILY 02/15/24 02/15/24 estradiol valerate 20 mg/mL 3 mg IM QWEEK 02/15/24 02/15/24 intramuscular oil sennosides 8.6 mg tablet (senna) 8.6 mg PO BEDTIME PRN Constipation 02/15/24 02/15/24 Allergies Allergy/AdvReac Type Severity Reaction Status Date / Time aripiprazole [From ABILIFY] Allergy Unknown HTN Verified 02/15/24 15:22 cefaclor [From CECLOR] Allergy Unknown HIVES, rash Verified 02/15/24 15:22 Cephalosporins Allergy Unknown RASH Verified 02/15/24 15:22 Review of Systems Review of Systems: Constitutional : No Weight loss, No Fever, No Chills, No Night Sweats, No Fatigue, No Malaise ENT/Mouth : No Hearing loss, No Ear Pain, No Nasal Congestion, No Sinus Pain, No Hoarseness, No sore throat, No Rhinorrhea, No Swallowing Difficulty Eyes: No Eye Pain, No Swelling, No Redness, No Foreign Body, No Discharge, No Vision Changes Cardiovascular : No Chest Pain, No SOB, No Dyspnea on Exertion, No Orthopnea, No Edema, No Palpitations Respiratory : No Cough, No Sputum, No Wheezing, No Smoke Exposure, No Dyspnea Gastrointestinal : No Nausea, No Vomiting, No Diarrhea, No Constipation, No abdominal Pain, No Hematochezia, No Melena Genitourinary : no irregular bleeding, No Dysuria, No Urinary Frequency, No Hematuria, No Urinary Incontinence, No Urgency, No Flank Pain, No Urinary Flow Changes, No Hesitancy Musculoskeletal : No joint pain, No Myalgias, No Joint Swelling Skin : No Skin Lesions, No rash Neuro : No Weakness, No Numbness, No Paresthesias, No Loss of Consciousness, No Dizziness, No Headache Psych : No Anxiety/Panic, complaining of depression, no SI or HI, admits to alcoholism Heme/Lymph: No Bruising, No Bleeding,No Lymphadenopathy Endocrine : No Polyuria, No Polydipsia, No Temperature Intolerance PMFSH Past Medical History Medical History Depression Alcohol abuse Asthma Social History Social History Household Members: Other Household Members Other:: lives at sober house Housing: Other Do you presently have visiting nurse or other home services: No Alcohol intake: former Comment: Pt refused bed alarm. States he will ring for assistance. Urinal at bedside Patient Tobacco Use Status: Never used Tobacco Smoked in Last 30 Days: No Use of substances other than those prescribed or required for medical reasons: Yes Substance Use Type: Marijuana Advance Directives: No Advance Directives Information Provided: No Do you have a plan to hurt others: No Plan service: No Current occupational status: unemployed Current occupation: Right handed. Physical Exam ED Vital Signs: Vital Signs - 24 hr 02/15/24 15:19 02/15/24 16:22 02/15/24 22:01 Temperature 97.1 F 97.6 F Pulse Rate 127 H 123 H Respiratory Rate 16 18 Blood Pressure 137/107 H 152/110 H 152/110 H Pulse Oximetry 95 97 Oxygen Delivery Method Room Air Room Air BMI result Body Mass Index 25.8 Const Other: Appearance: Alert. Oriented X3. No acute distress. Eyes: Pupils equal, round and reactive to light. ENT: Pharynx normal. Neck: Normal inspection. Neck supple. No lymph nodes noted. No crepitus CVS: Normal heart rate and rhythm. Pulses normal. Normal S1 and S2 Respiratory: No respiratory distress. Breath sounds normal. No Wheezing. No rales Abdomen: Soft and nontender. No rigidity. No distention. Skin: Skin warm and dry. Normal skin color. Normal skin turgor. Extremities: No lower extremity edema. No Lacerations. No Rash Neuro: Oriented X 3. No motor deficit. No sensory deficit. Moving all extremities. No slurred speech. CN 2 through 12 grossly intact Psych: calm, cooperative, normal affect Course Course Course Narrative: This is a rapid medical exam performed by Sharonda Kelley NP: Additional HPI, ROS, PE not included below will be deferred to primary provider. Patient is a 53-year-old assigned male at who identifies as female presenting to the ED with complaint of depression and alcohol use. Patient states she has been identifying as a female for the past 2 years. Recently a long time friend stated that it was too embarassing to remain friends with the patient and this has been causing the patient a great deal of distress. Has been using alcohol as a coping mechanism. Last drink was this morning. Denies history of withdrawal seizures. Denies suicidal ideation. Recently here for similar symptoms. Has also been feeling lightheaded. Plan: medically clear, then CARE team eval Medications Administered Generic Name Dose Route Start Last Admin Trade Name Freq PRN Reason Stop Dose Admin Spironolactone 25 mg 02/15/24 21:00 02/15/24 22:01 Spironolactone 25 Mg Tablet PO 25 mg BID SHU Administration Protocol Discontinued Medications Generic Name Dose Route Start Last Admin Trade Name Freq PRN Reason Stop Dose Admin Magnesium Sulfate 2 gm in 50 mls @ 25 mls/hr 02/15/24 19:06 02/15/24 19:24 Magnesium Sulfate/H2o IV 02/15/24 21:05 25 mls/hr ONCE ONE Administration Magnesium Oxide 800 mg 02/15/24 16:13 02/15/24 16:29 Magnesium Oxide 400 Mg Tablet PO 02/15/24 16:14 800 mg ONCE ONE Administration Potassium Chloride 60 meq 02/15/24 16:13 02/15/24 16:29 Potassium Chloride Packet 20 Meq Packet PO 02/15/24 16:14 60 meq ONCE ONE Administration Medical Decision Making Medical Decision Making [facility] Narrative: -my interpretation of labs: Hematology at baseline, chemistry shows potassium of 2.9, magnesium 1.0, chronic LFTs elevation. Urinalysis has trace leukocyte esterase, no UTI symptoms, antibiotics not indicated. Urine toxicology positive for THC -potassium and magnesium were repleted p.o. -we will repeat labs to check potassium and magnesium at 19:00 -urine toxicology pending -patient is here voluntarily, patient is not SI or HI, section 12 is not indicated -after p.o. supplementation, potassium improved to normal levels, 4.3. However, magnesium did not improve significantly, only to 1.1. Patient will be receiving IV magnesium, 2 g. -magnesium was rechecked, no 1.9, back to normal. -at this time 22:24, patient is medically cleared to be seen by the care team, physician observation started at 22:24 Differential Diagnosis Differential Diagnoses: The differential diagnosis associated with the presentation includes (Anxiety, depression, polysubstance abuse, alcohol dependence) Admission/Observation Consideration of admission/observation: Escalation of care including admission/observation considered (Once medically cleared, patient will be under physician of serration waiting to be seen by the care team) Lab Data [facility] Lab Attestation statement: I reviewed the patient's lab results. 02/15/24 15:47 02/15/24 18:19 Labs: Lab Results 02/15/24 02/15/24 02/15/24 Range/Units 15:47 17:11 18:19 WBC 7.1 (4.8-10.8) X10*3/uL RBC 3.82 L (4.60-5.80) X10*6/uL Hgb 12.6 L (14.0-18.0) g/dl Hct 34.8 L (42.0-52.0) % MCV 91.1 (80.0-98.0) fL MCH 33.0 (27.0-33.0) pg MCHC 36.2 H (31.0-36.0) g/dl RDW 17.6 H (11.0-16.0) % Plt Count 197 D (160-400) X10*3/uL MPV 9.4 (9.4-12.4) fL Immature Gran % (Auto) 0.4 (0.0-0.4) % Neut % (Auto) 80.4 H (45-73) % Lymph % (Auto) 14.6 L (20-40) % [place] % (Auto) 3.8 (2-11) % Eos % (Auto) 0.1 (0-4) % Baso % (Auto) 0.7 (0-2) % Lymph # (Auto) 1.0 L (1.2-4.9) X10*3/uL [place] # (Auto) 0.3 (0.1-1.2) X10*3/uL Eos # (Auto) 0.0 (0.0-0.4) X10*3/uL Baso # (Auto) 0.1 (0.0-0.2) X10*3/uL Abs Immat Gran (auto) 0.03 (0.00-0.03) X10*3/uL Absolute Neuts (auto) 5.7 (2.0-8.3) x10*3/uL Absolute Nucleated RBC 0.020 H (0.0-0.012) X10*3/uL Nucleated RBC % (auto) 0.3 H (0.0-0.2) /100WBC PT 13.8 H (11.1-13.3) SEC INR 1.1 (0.9-1.1) Sodium 133 L (135-145) mmol/L Potassium 2.9 L* 4.3 D (3.3-5.1) mmol/L Chloride 96 (96-108) mmol/L Carbon Dioxide 16 L (22-29) mmol/L Anion Gap 24 H (12-20) BUN 6 L (9-16) mg/dL Creatinine 1.06 (0.5-1.4) mg/dL Estim Creat Clear Calc 90.4 Estimated GFR > 60 Random Glucose 263 H (60-115) mg/dL Calcium 8.6 D (8.4-10.2) mg/dL Magnesium 1.0 L* 1.1 L* (1.6-2.6) mg/dL Total Bilirubin 1.8 H (0.0-1.0) mg/dL AST 48 H (5-37) U/L ALT 30 (0-40) U/L Alkaline Phosphatase 151 H (39-117) U/L Troponin I High Sens < 2.7 (<3.5-35.0) ng/L Total Protein 6.7 (6.5-8.0) g/dL Albumin 3.9 (3.5-5.0) g/dL Urine Color Dark Yellow Urine Appearance Clear Urine pH 6.5 (5.0-9.0) Ur Specific [place] 1.010 (1.005-1.025) Urine Protein 30 (1+) H (Neg-Trace) mg/dL Urine Glucose (UA) Negative (Negative) mg/dL Urine Ketones Trace (Negative) mg/dL Urine Blood Negative (Negative) Urine Nitrite Negative (Negative) Ur Leukocyte Esterase Trace H (Negative) Urine RBC 0-2 (0-2) /HPF Urine WBC 0-5 (0-5) /HPF Ur Squamous Epith Cells 3-5 (0-2) /HPF Urine Bacteria None Seen (None Seen) Hyaline Casts 0-2 (0-2) /LPF Urine Opiates Screen Not Detected (Not Detect) Ur Buprenorphine Scrn Not Detected (Not Detect) ng/mL Ur Oxycodone Screen Not Detected (Not Detect) ng/mL Urine Methadone Screen Not Detected (Not Detect) ng/mL Urine Fentanyl Screen Not Detected (Not Detect) Ur Barbiturates Screen Not Detected (Not Detect) Ur Phencyclidine Scrn Not Detected (Not Detect) Ur Amphetamines Screen Not Detected (Not Detect) U Benzodiazepines Scrn Not Detected (Not Detect) Urine Cocaine Screen Not Detected (Not Detect) U Marijuana (THC) Screen POSITIVE H (Not Detect) Ethyl Alcohol < 10 mg/dL 02/15/24 Range/Units 21:49 WBC (4.8-10.8) X10*3/uL RBC (4.60-5.80) X10*6/uL Hgb (14.0-18.0) g/dl Hct (42.0-52.0) % MCV (80.0-98.0) fL MCH (27.0-33.0) pg MCHC (31.0-36.0) g/dl RDW (11.0-16.0) % Plt Count (160-400) X10*3/uL MPV (9.4-12.4) fL Immature Gran % (Auto) (0.0-0.4) % Neut % (Auto) (45-73) % Lymph % (Auto) (20-40) % [place] % (Auto) (2-11) % Eos % (Auto) (0-4) % Baso % (Auto) (0-2) % Lymph # (Auto) (1.2-4.9) X10*3/uL [place] # (Auto) (0.1-1.2) X10*3/uL Eos # (Auto) (0.0-0.4) X10*3/uL Baso # (Auto) (0.0-0.2) X10*3/uL Abs Immat Gran (auto) (0.00-0.03) X10*3/uL Absolute Neuts (auto) (2.0-8.3) x10*3/uL Absolute Nucleated RBC (0.0-0.012) X10*3/uL Nucleated RBC % (auto) (0.0-0.2) /100WBC PT (11.1-13.3) SEC INR (0.9-1.1) Sodium (135-145) mmol/L Potassium (3.3-5.1) mmol/L Chloride (96-108) mmol/L Carbon Dioxide (22-29) mmol/L Anion Gap (12-20) BUN (9-16) mg/dL Creatinine (0.5-1.4) mg/dL Estim Creat Clear Calc Estimated GFR Random Glucose (60-115) mg/dL Calcium (8.4-10.2) mg/dL Magnesium 1.9 (1.6-2.6) mg/dL Total Bilirubin (0.0-1.0) mg/dL AST (5-37) U/L ALT (0-40) U/L Alkaline Phosphatase (39-117) U/L Troponin I High Sens (<3.5-35.0) ng/L Total Protein (6.5-8.0) g/dL Albumin (3.5-5.0) g/dL Urine Color Urine Appearance Urine pH (5.0-9.0) Ur Specific [place] (1.005-1.025) Urine Protein (Neg-Trace) mg/dL Urine Glucose (UA) (Negative) mg/dL Urine Ketones (Negative) mg/dL Urine Blood (Negative) Urine Nitrite (Negative) Ur Leukocyte Esterase (Negative) Urine RBC (0-2) /HPF Urine WBC (0-5) /HPF Ur Squamous Epith Cells (0-2) /HPF Urine Bacteria (None Seen) Hyaline Casts (0-2) /LPF Urine Opiates Screen (Not Detect) Ur Buprenorphine Scrn (Not Detect) ng/mL Ur Oxycodone Screen (Not Detect) ng/mL Urine Methadone Screen (Not Detect) ng/mL Urine Fentanyl Screen (Not Detect) Ur Barbiturates Screen (Not Detect) Ur Phencyclidine Scrn (Not Detect) Ur Amphetamines Screen (Not Detect) U Benzodiazepines Scrn (Not Detect) Urine Cocaine Screen (Not Detect) U Marijuana (THC) Screen (Not Detect) Ethyl Alcohol mg/dL Critical Care Time Critical Care Time Critical Care Time: Yes Total Critical Care Time: 60 Attestation: I have personally provided critical care time. Time includes review of lab data, radiology results, discussion with consultants, and monitoring for potential decompensation. Intervention performed as documented. Discharge Plan Discharge Clinical Impression: Alcohol dependence, Hypomagnesemia, Acute hypokalemia Patient Disposition: Still a Patient Prescriptions: No Action citalopram 20 mg tablet 1 tab PO DAILY albuterol sulfate [ProAir HFA] 90 mcg/actuation HFA aerosol inhaler 2 puff PO Q4-6H PRN (Reason: Wheezing) spironolactone 25 mg tablet 25 mg PO BID sennosides [senna] 8.6 mg Tablet 8.6 mg PO BEDTIME PRN (Reason: Constipation) ascorbic acid (vitamin C) 500 mg tablet 500 mg PO BID estradiol valerate 20 mg/mL oil 3 mg IM QWEEK dutasteride 0.5 mg capsule 0.5 mg PO DAILY cholecalciferol (vitamin D3) 25 mcg (1,000 unit) tablet 25 mcg PO DAILY Interventions: [place]ner-Suicide Risk Severity Scale Last Done: 02/15/24 18:26 Print Language: Choose Not To Answer
[2024-02-15 15:19] VITALS: BP 137/107; PULSE 127; RESP 16; TEMP 36.2; O2SAT 95; BMI 25.8
--- NOTE | 2024-02-15 15:24 | ECG_ITS ---
Test Reason : LIGHT HEADED Blood Pressure : / mmHG Vent. Rate : 120 BPM Atrial Rate : 120 BPM P-R Int : 150 ms QRS Dur : 068 ms QT Int : 324 ms P-R-T Axes : 018 023 009 degrees QTc Int : 457 ms Artifact in tracing Sinus tachycardia Nonspecific ST and T wave abnormality Abnormal ECG When compared with ECG of 15-APR-2007 08:01, ST now depressed in Anterior leads Nonspecific T wave abnormality now evident in Anterior leads Referred By: Damaris Kelley Electronically Signed By:SCOTT FERRER
[2024-02-15 15:52] LABS: MANUAL DIFF FLAG NO
[2024-02-15 15:54] LABS: Basophils Absolute Auto 0.1 X10*3/uL (0.0-0.2); Basophils Percent Auto 0.7 % (0-2); Eosinophils Percent Auto 0.1 % (0-4); Hematocrit 34.8 % (42.0-52.0); Hemoglobin 12.6 g/dl (14.0-18.0); Imm Gran Abs Auto 0.03 X10*3/uL (0.00-0.03); Imm Gran Pct Auto 0.4 % (0.0-0.4); Lymphocytes Percent Auto 14.6 % (20-40); Mean Corpuscular HGB Conc 36.2 g/dl (31.0-36.0); Mean Corpuscular Volume 91.1 fL (80.0-98.0); Mean Platelet Volume 9.4 fL (9.4-12.4); Monocytes Absolute Auto 0.3 X10*3/uL (0.1-1.2); Monocytes Percent Auto 3.8 % (2-11); NRBC Pct Auto 0.3 /100WBC (0.0-0.2); Neutrophils Absolute Auto 5.7 x10*3/uL (2.0-8.3); Neutrophils Percent Auto 80.4 % (45-73); Platelet Count 197 X10*3/uL (160-400); Red Blood Count 3.82 X10*6/uL (4.60-5.80); Red Cell Distribution Width 17.6 % (11.0-16.0); White Blood Count 7.1 X10*3/uL (4.8-10.8)
[2024-02-15 16:00] LABS: INTERNATIONAL NORM RATIO 1.1 (0.9-1.1); Prothrombin Time 13.8 SEC (11.1-13.3)
[2024-02-15 16:09] LABS: Ethanol < 10 mg/dL
--- NOTE | 2024-02-15 16:19 | PC.NURSE ---
Communication Critical lab value Mag 1.0 and K 2.9 - Dr. Harris made aware with orders.
[2024-02-15 16:22] VITALS: BP 152/110; PULSE 123; RESP 18; TEMP 36.4; O2SAT 97
[2024-02-15 16:22] LABS: Alanine Aminotransferase 30 U/L (0-40); Albumin Level 3.9 g/dL (3.5-5.0); Alkaline Phosphatase 151 U/L (39-117); Anion Gap 24 (12-20); Aspartate Amino Transferase 48 U/L (5-37); Bilirubin Total 1.8 mg/dL (0.0-1.0); Blood Urea Nitrogen 6 mg/dL (9-16); Calcium 8.6 mg/dL (8.4-10.2); Carbon Dioxide 16 mmol/L (22-29); Chloride 96 mmol/L (96-108); Creatinine Clr Calc Pharmacy 90.4; Estimated Glomerular Filt Rate > 60; Glucose Random 263 mg/dL (60-115); Potassium 2.9 mmol/L (3.3-5.1); Sodium 133 mmol/L (135-145); Total Protein 6.7 g/dL (6.5-8.0)
[2024-02-15 16:23] LABS: Troponin-I High Sensitivity < 2.7 ng/L (<3.5-35.0)
[2024-02-15] MEDS: Potassium Chloride Packet 20 MEQ PACKET 60 MEQ PO (16:29)
[2024-02-15] MEDS: Magnesium Oxide 400 MG TABLET 800 MG PO (16:29)
--- NOTE | 2024-02-15 16:46 | MHC.EDTECH ---
late entry, pt changed over at 1615. pt chnaged into green behavioral gown, belongings placed in locker 6 and attempted to get urine for labs but pt was unable to urinate at this time
[2024-02-15 17:25] LABS: Appearance Urine Clear; Color Urine Dark Yellow; Glucose Urine UA Negative (Negative); Leukocyte Esterase Urine Trace (Negative); Nitrite Urine Negative (Negative); PH 6.5 (5.0-9.0); UMIC TRIGGER UACC YES; Urine Blood Negative (Negative); Urine Ketones Trace mg/dL (Negative); Urine Protein 30 (1+) mg/dL (Neg-Trace)
[2024-02-15 17:36] LABS: Amphetamine Screen Urine Not Detected (Not Detect); Barbiturates, Urine Not Detected (Not Detect); Benzodiazepines Screen Urine Not Detected (Not Detect); Buprenorphine Scr Not Detected (Not Detect); Cannabinoid Screen Urine POSITIVE (Not Detect); Cocaine Screen Urine Not Detected (Not Detect); Fentanyl, urine Not Detected (Not Detect); Methadone Screen, Urine Not Detected (Not Detect); Opiate Screen Urine Not Detected (Not Detect); Oxycodone Screen Urine Not Detected (Not Detect); Phencyclidine Screen Urine Not Detected (Not Detect)
[2024-02-15 17:49] LABS: Bacteria Urine None Seen (None Seen); Hyaline Casts Urine 0-2 /LPF (0-2); RBC Urine 0-2 /HPF (0-2); WBC Urine 0-5 /HPF (0-5)
[2024-02-15 18:56] LABS: Potassium 4.3 mmol/L (3.3-5.1)
--- NOTE | 2024-02-15 19:15 | PC.NURSE ---
Assumed care of pt at 1915 for IV administration of Mag. Pt resting in bed comfortably. Will go place IV line.
--- NOTE | 2024-02-15 19:15 | PC.NURSE ---
pt off unit into main ED for IV magnesium and lab work. plan of care on going
[2024-02-15] MEDS: Magnesium Sulfate/H2O 2 GM/50 ML PIGGYBACK IV (19:24)
--- NOTE | 2024-02-15 19:28 | PC.NURSE ---
#20 R-AC placed, IV mag running at this time.
[2024-02-15 20:11] LABS: Magnesium 1.1 mg/dL (1.6-2.6)
[2024-02-15 22:01] VITALS: BP 152/110
[2024-02-15] MEDS: Spironolactone 25 MG TABLET PO (22:01)
[2024-02-15 22:10] LABS: Magnesium 1.9 mg/dL (1.6-2.6)
--- NOTE | 2024-02-15 22:31 | PC.NURSE ---
pt returned to unit
[2024-02-15 22:34] VITALS: BP 160/104; PULSE 104; RESP 18; TEMP 36.4; O2SAT 99
--- NOTE | 2024-02-15 22:36 | PC.NURSE ---
per mother, pt also takes PRN trazadone at night, 100mg. this was not written on med list she had previously provided
[2024-02-16] MEDS: Loperamide HCl 2 MG CAPSULE 4 MG PO (00:37)
--- NOTE | 2024-02-16 07:06 | PC.NURSE ---
Assumed care of patient at 0645. Patient is observed resting quietly in their room. No signs of distress observed, breathing is even and unlabored.
[2024-02-16] MEDS: Albuterol Sulfate 90 MCG 8 GM INHALER 2 PUFF INHALE ×3 (08:03→19:04)
[2024-02-16] MEDS: Spironolactone 25 MG TABLET PO ×2 (08:46→19:10)
[2024-02-16] MEDS: Escitalopram Oxalate 10 MG TABLET PO (08:47)
--- NOTE | 2024-02-16 10:26 | MHC.RECOVRN ---
Briefly met with pt after request by CARE Team and pts request for ATS. Pt reports alcohol use, 10 nips daily. Pt agreeable to any facility. No bed availability at [facility], [facility], [place]. Spoke with Iggy from [facility], Iggy states bed availabilty today but worst case scenario tomorrow. Referral sent to [facility].
[2024-02-16 17:26] VITALS: BP 117/80; PULSE 98; RESP 18; TEMP 36.3; O2SAT 100
[2024-02-16 19:10] VITALS: BP 140/96
[2024-02-16] MEDS: LORazepam 1 MG TABLET 2 MG PO (19:11)
[2024-02-16 19:13] VITALS: BP 140/96; PULSE 107; RESP 18; TEMP 36.7; O2SAT 94
[2024-02-16] MEDS: traZODone HCL 100 MG TABLET PO (21:38)
[2024-02-17 06:03] VITALS: BP 124/75; PULSE 91; RESP 16; TEMP 36.8; O2SAT 98
--- NOTE | 2024-02-17 06:09 | PC.NURSE ---
Patient slept through the night, no distress observed/reported, meds and meals compliant, due to history of ETOH withdrawal CIWA assessed at 190 scored 12, Ativan 2 mg administered with + effect, CIWA at 06 was 2, no behavior and safety concerns, clinically stable, patient was assessed by recovery team, detox bed search, [facility], pending confirmation, VSS, will continue to monitor
--- NOTE | 2024-02-17 08:14 | PC.NURSE ---
Assumed care of patient at 0645, patient appears to be sleeping, respirations even and unlabored, no apparent distress. Continue plan of care for admit [facility] detox today
[2024-02-17] MEDS: Escitalopram Oxalate 10 MG TABLET PO (08:54)
[2024-02-17] MEDS: Spironolactone 25 MG TABLET PO (08:54)
--- NOTE | 2024-02-17 11:03 | PC.NURSE ---
Nurse to nurse given to Jada in [place]. The following information was given to this RN to give to patient: -may come with five outfits, no restrictions on type of clothing -may have phone after five days of treatment -no visitors allowed but phone calls are encouraged Address: [address] [place] [id number]
--- NOTE | 2024-02-17 14:00 | PC.NURSE ---
Patient's mom Mickie stopped for brief visit with patient, questions about visiting hours for facility patient is going to. Encouraged family to wait until patient is settled in new facility to contact them regarding visitng hours as they might have certain restrictions for admissions. Mom left cell phone number [phone] for patient to call regarding personal belongings to be brought to [facility].
[2024-02-17] MEDS: Loperamide HCl 2 MG CAPSULE PO (14:15)
[2024-02-17 15:11] VITALS: BP 132/85; PULSE 106; RESP 16; TEMP 36.4; O2SAT 98
[2024-02-17 15:20] VITALS: BP 132/85; PULSE 106; RESP 16; TEMP 36.4; O2SAT 98
== END 2024-02-17 15:31 | disposition other institution (70) ==
PROVIDERS: Registered Nurse Emergency; Emergency Provider Emergency Medicine
DX: F33.1 Major depressive disorder, recurrent, moderate (principal); F10.20 Alcohol dependence, uncomplicated; Y90.0 Blood alcohol level of less than 20 mg/100 ml; E83.42 Hypomagnesemia; R06.02 Shortness of breath; E87.6 Hypokalemia; R00.0 Tachycardia, unspecified; Z79.899 Other long term (current) drug therapy; Z51.81 Encounter for therapeutic drug level monitoring
CPT/HCPCS: 36415; 80053; 80307; 81001; 83735; 84132; 84484; 85025; 85610; 93005; 96365; 96366; 99285; J3475; S9485

== ENCOUNTER → 2024-02-15 15:24 | Outpatient (BNV) | payer OTHER, SELFPAY | PROVIDERS: Emergency Provider Emergency Medicine; Visit Provider Internal Medicine | DX: R94.31 Abnormal electrocardiogram [ECG] [EKG] (principal) | CPT/HCPCS: 93010 ==

== ENCOUNTER 2024-02-29 13:20 | Outpatient (REF) | payer OTHER, SELFPAY ==
[2024-02-29 13:46] LABS: MANUAL DIFF FLAG NO
[2024-02-29 14:18] LABS: Basophils Absolute Auto 0.1 X10*3/uL (0.0-0.2); Basophils Percent Auto 1.1 % (0-2); Eosinophils Absolute Auto 0.1 X10*3/uL (0.0-0.4); Eosinophils Percent Auto 1.1 % (0-4); Hematocrit 35.4 % (42.0-52.0); Hemoglobin 11.5 g/dl (14.0-18.0); Imm Gran Abs Auto 0.04 X10*3/uL (0.00-0.03); Imm Gran Pct Auto 0.6 % (0.0-0.4); Lymphocytes Absolute Auto 1.4 X10*3/uL (1.2-4.9); Lymphocytes Percent Auto 19.9 % (20-40); Mean Corpuscular HGB Conc 32.5 g/dl (31.0-36.0); Mean Corpuscular Hemoglobin 32.4 pg (27.0-33.0); Mean Corpuscular Volume 99.7 fL (80.0-98.0); Mean Platelet Volume 9.7 fL (9.4-12.4); Monocytes Absolute Auto 0.5 X10*3/uL (0.1-1.2); Monocytes Percent Auto 6.6 % (2-11); Neutrophils Percent Auto 70.7 % (45-73); Platelet Count 394 X10*3/uL (160-400); Red Blood Count 3.55 X10*6/uL (4.60-5.80)
[2024-02-29 14:35] LABS: Alanine Aminotransferase 31 U/L (0-40); Albumin Level 3.9 g/dL (3.5-5.0); Alkaline Phosphatase 62 U/L (39-117); Anion Gap 11 (12-20); Aspartate Amino Transferase 26 U/L (5-37); Bilirubin Total 0.4 mg/dL (0.0-1.0); Blood Urea Nitrogen 15 mg/dL (9-16); Calcium 9.7 mg/dL (8.4-10.2); Carbon Dioxide 24 mmol/L (22-29); Chloride 108 mmol/L (96-108); Estimated Glomerular Filt Rate > 60; Glucose Random 145 mg/dL (60-115); Magnesium 1.8 mg/dL (1.6-2.6); Potassium 4.5 mmol/L (3.3-5.1); Sodium 138 mmol/L (135-145); Total Protein 6.6 g/dL (6.5-8.0)
[2024-03-05 11:48] LABS: Testosterone, Total 9 ng/dL (250-1100)
[2024-03-06 23:24] LABS: Estradiol Ultra Sensitive 75 pg/mL (< OR = 29)
== END 2024-02-29 13:21 | disposition home or self-care (01) ==
LOC: HO.LAB 13:20
PROVIDERS: PCP Nurse Practitioner Gerontology; Visit Provider Nurse Practitioner Gerontology
DX: R25.2 Cramp and spasm (principal)
CPT/HCPCS: 36415; 80053; 82670; 83735; 84403; 85025